=== PATIENT | male | born 1945 | race Caucasian/White ===

== ENCOUNTER → 2019-01-02 14:53 | Outpatient (CLI) | payer MEDICARE, SELFPAY ==
[2019-01-02 15:23] LABS: Microscopic, Urine URINE MICROSCOPIC (MICROSCOPIC)
[2019-01-02 16:12] LABS: Basophils # 0.1 K/mm3 (0-0.2); Basophils % 0.8 % (0.1-2.0); Eosinophils # 0.3 K/mm3 (0.0-0.4); Eosinophils % 3.4 % (0.1-12.0); Hemoglobin 16.9 g/dL (14.1-18.0); Lymphocytes # 2.1 K/mm3 (0.7-4.5); Lymphocytes % 22.2 % (10-50); Mean Corpuscular HGB Conc 33.1 g/dL (31.8-35.4); Mean Corpuscular Hemoglobin 32.6 pg (27.0-31.2); Mean Corpuscular Volume 98.6 fl (80-94); Mean Platelet Volume 8.1 fl (7.4-10.4); Monocytes # 0.8 K/mm3 (0.1-1.0); Neutrophils # 6.2 K/mm3 (1.8-7.8); Neutrophils % 65.5 % (37.0-80.0); Platelet Count 170 K/mm3 (142-424); Red Blood Count 5.18 M/mm3 (4.60-6.20); Red Cell Distribution Width 13.5 % (11.5-17.5); White Blood Count 9.5 K/mm3 (4.8-10.8)
[2019-01-02 17:24] LABS: Alanine Aminotransferase 24 U/L (12-78); Albumin/Globulin Ratio 1.2 (1.1-1.8); Alkaline Phosphatase 105 U/L (46-116); Anion Gap 14.4 mEq/L (5-15); Aspartate Amino Transferase 19 U/L (15-37); Bilirubin,Total 0.8 mg/dL (0.2-1.0); Blood Urea Nitrogen 13 mg/dL (7-18); C-Reactive Protein 5.6 mg/dL (0.0-0.9); Calcium 9.4 mg/dL (8.5-10.1); Carbon Dioxide 29 mmol/L (21.0-32.0); Chloride 102 mmol/L (98-107); Creatinine,Serum 0.98 mg/dL (0.70-1.30); Estimated Glomerular Filt Rate 75 ml/min (>60); GFR (African American) 91 ML/MIN (>60); Globulin 3.4 gm/dl (1.3-3.2); Glucose 120 mg/dL (74-106); Potassium 4.4 mmoL/L (3.5-5.1); Sodium 141 mmol/L (136-145); Total Protein,Serum 7.4 gm/dL (6.4-8.2)
[2019-01-02 17:27] LABS: Erythrocyte Sedimentation Rate 95 mm/hr (0-20)
[2019-01-02 17:53] LABS: Appearance,Urine CLEAR (Clear); Bilirubin,Urine Negative (Negative); Blood, Urine TRACE-L (Negative); Color,Urine YELLOW (Yellow); Glucose,Urine (UA) TRACE (Negative); Ketones,Urine Negative (Negative); Leukocyte Esterase,Urine Negative (Negative); Nitrate,Urine Negative (Negative); Protein,Urine Negative (Negative)
[2019-01-02 18:09] LABS: Bacteria,Urine Trace /lpf; RBC,Urine Occasional #/hpf (0-3)
== END ==
PROVIDERS: Visit Provider Emergency Medicine
DX: K52.9 Noninfective gastroenteritis and colitis, unspecified (principal)
CPT/HCPCS: 36415; 80053; 81001; 85025; 85651; 86140

== ENCOUNTER → 2019-01-03 08:52 | Outpatient (CLI) | payer MEDICARE, SELFPAY ==
[2019-01-03 09:07] LABS: Adenovirus F 40/41, stool Not Detected (NotDetected); Astrovirus Not Detected (NotDetected); Campylobacter Not Detected (NotDetected); Clostridium Difficile A/B, PCR Not Detected (NotDetected); Cryptosporidium Not Detected (NotDetected); Cyclospora Cayetanesis Not Detected (NotDetected); Entamoeba histolytica Not Detected (NotDetected); Enteroaggregative E coli Not Detected (NotDetected); Enteropathogenic E coli Not Detected (NotDetected); Enterotoxigenic E coli Not Detected (NotDetected); Giardia lamblia Not Detected (NotDetected); Norovirus Not Detected (NotDetected); Plesimonas Shigalloides, PCR Not Detected (NotDetected); Rotavirus A Not Detected (NotDetected); Salmonella, PCR Not Detected (NotDetected); Sapovirus Not Detected (NotDetected); Shiga-like toxin E coli Not Detected (NotDetected); Shigella Enterovasive E coli Not Detected (NotDetected); Vibrio Cholerae Not Detected (NotDetected); Vibrio, PCR Not Detected (NotDetected); Yersinia Entercolitica, PCR Not Detected (NotDetected)
== END ==
PROVIDERS: Emergency Medicine; Visit Provider Family Medicine
DX: K52.9 Noninfective gastroenteritis and colitis, unspecified (principal)
CPT/HCPCS: 87506

== ENCOUNTER 2021-01-30 13:48 | Emergency (ER) | payer MEDICARE, SELFPAY ==
[2021-01-30 15:38] VITALS: BP 127/87; PULSE 89; RESP 16; TEMP 38.1; O2SAT 96; BMI 27.8
--- NOTE | 2021-01-30 15:46 | HMH.EDUTC ---
[facility] [place] Clinical Impression: Sinusitis Qualifiers: Sinusitis location: unspecified location Chronicity: unspecified Qualified Code(s): J32.9 - Chronic sinusitis, unspecified Disposition: Home, Self-Care Condition on Discharge: Good Instructions: Sinusitis, DI for Sinusitis, DI for Fever (Symptom) -- Adult Additional Instructions: *Monitor Temp, Over the counter Motrin or Tylenol as directed/as needed Tylenol every 4 hours and Motrin every 6 hours (as long as your family doctor has told you that you can take it) for fever or pain. and straight to ER if unable to lower temp less than 101.0 after medication given *Warm salt water gargles may help to soothe the throat *Throat Lozenges *Warm fluids like tea with honey may help to soothe the throat *Sleep elevated *Humidifier/Vaporizer *Flonase 2 sprays in each nostril daily but be aware that it may take 2-3 days before you notice improvement Follow up IMMEDIATELY for new or worsening symptoms or no Noticeable improvement over the next 48-72 hours. 911 for difficulty breathing or swallowing You were tested for today for COVID19 your test result should be back in the next 24-48 hours you may check your results on the [facility] my health portal if you have trouble logging on or getting your results you may call You was given a handout with instructions for Self Quarantine and Self isolation for while you wait on test results and what to do if they are positive If you are positive the Health Dept will be contacting you also Make sure to take your Vitamins Vit. C Vit D and Zinc if you can take them Prescriptions: Benzonatate [Benzonatate 100mg cap] 100 mg PO Q8HP PRN #15 cap PRN Reason: Cough Transmission Status: Pending to [facility] Amoxicillin/Potassium Clav [Augmentin 875-125 Tablet] 1 tab PO Q12H 7 Days #14 tab Transmission Status: Pending to [facility] Fluticasone Propionate [Flonase 50mcg nasal spray 16gm] 1 spr NS DAILY #1 each Transmission Status: Pending to [facility] Referrals: Provider,Referral, MD [Primary Care Provider] - As needed Time of Disposition: 16:13 Medical Decision Making - Sukhi Inquiry Pt receiving controlled substance: No Sukhi was queried for this patient: No Vital Signs: 01/30/21 15:38 Temperature 100.6 F H Temperature Source Oral Pulse Rate [Right Radial] 89 Respiratory Rate 16 Blood Pressure [Right Arm] 127/87 Blood Pressure Mean [Right Arm] 100 Blood Pressure Source [Right Arm] Automatic Cuff Blood Pressure Position [Right Arm] Sitting 02 Sat by Pulse Oximetry 96 Oxygen Delivery Method Room Air - Lab Data Lab results reviewed: Yes: I reviewed the patient's lab results. Lab Results 01/30/21 15:44: Influenza Type A Ag Negative, Influenza Type B Ag Negative Orders (Tests/Meds): ORDERS Category Date Time Status Covid-19 Nasal PCR ([facility]) Routine Lab 01/30/21 15:48 [place] [facility] [place] - General Stated complaint: cough, congestion, drainage Time Seen by Provider: 01/30/21 15:46 Mode of Arrival: Ambulatory Source of Information: Patient Limitations: No Limitations Description of Symptoms (Recalled from Triage Doc. by RN): Pt stated sinus pressure, runny nose, cough for 3 wks HEENT Symptoms (Recalled from RN notes): Yes Resp Symptoms (Recalled from RN notes): No Skin Symptoms (Recalled from RN notes): No MS Symptoms (Recalled from RN notes): No Functional Status (Recalled from RN notes): n/a - History of Present Illness Provider Complaint: Patient states that he has been having sinus congestion and pressure for about 3 weeks that has continued to get worse with drainage in the back of his throat State that today he was feeling chilled and having bodyaches State that he thinks he has a sinus infection but worried about flu and COVID and wanted to get checked - Related Data Home Medications Medication Instructions Recorded Confirmed Aspirin [Aspir 81] 81 mg PO DA
[2021-01-30 16:02] LABS: UTC Influenza A Antigen Negative (Negative)
[2021-01-30 16:03] LABS: UTC Influenza B Antigen Negative (Negative)
[2021-01-30 16:17] VITALS: BP 127/87; PULSE 89; RESP 49; TEMP 38.1; O2SAT 96
== END 2021-01-30 16:17 | disposition home or self-care (01) ==
PROVIDERS: Emergency Provider Nurse Practitioner
DX: U07.1 COVID-19 (principal); J32.9 Chronic sinusitis, unspecified; E11.9 Type 2 diabetes mellitus without complications; E78.5 Hyperlipidemia, unspecified; I10 Essential (primary) hypertension; I25.10 Atherosclerotic heart disease of native coronary artery without angina pectoris
CPT/HCPCS: G0463; 87804; 99202; C9803; U0003; U0005

== ENCOUNTER 2021-02-28 10:51 | Observation (INO) | payer MEDICARE, SELFPAY ==
[2021-02-28] VITALS (13 sets, daily range): BP systolic 116–155; BP diastolic 74–92; PULSE 72–95; RESP 15–26; TEMP 36.7–37.3; O2SAT 85–97; BMI 25.1; BMI 24.8
--- NOTE | 2021-02-28 11:01 | XR_ITS ---
FINAL REPORT CLINICAL HISTORY: sob Post covid breathing difficulties, tested positive early January FINDINGS: Two views of the chest were obtained. The heart size and pulmonary vascularity are within normal limits. The mediastinum is normal. No acute pulmonary abnormality is identified. There is no pneumothorax. The bony thorax is intact. IMPRESSION: No active cardiopulmonary disease. Reviewed, Interpreted and Dictated by Landen Olmstead III, MD Transcribed by Marilee Quintana Authenticated by Landen Olmstead III, MD on 02/28/2021 12:41:24 PM [facility]
--- NOTE | 2021-02-28 12:17 | HMH.EDUTC ---
[facility] [place] Disposition Clinical Impression: COVID-19 Pneumonia Qualifiers: Pneumonia type: due to unspecified organism Laterality: bilateral Lung location: unspecified part of lung Qualified Code(s): J18.9 - Pneumonia, unspecified organism CAD (coronary artery disease) Qualifiers: Coronary Disease-Associated Artery/Lesion type: [place] artery [place] vs. transplanted heart: [place] heart Associated angina: without angina Qualified Code(s): I25.10 - Atherosclerotic heart disease of [place] coronary artery without angina pectoris Disposition: Still a Patient Condition on Discharge: Fair Instructions: Pneumonia-Adult Referrals: Provider,Referral, [Primary Care Provider] - Time of Disposition: 12:29 Medical Decision Making - Medical Records Medical records reviewed: No: I reviewed the patient's medical records. - Sukhi Inquiry Pt receiving controlled substance: No Vital Signs: 02/28/21 12:11 Temperature 98.5 F Temperature Source Oral Pulse Rate [Left] 95 H Respiratory Rate 26 H Blood Pressure [Right Arm] 155/89 H Blood Pressure Mean [Right Arm] 111 02 Sat by Pulse Oximetry 89 L Oxygen Delivery Method Room Air Orders (Tests/Meds): ORDERS Category Date Time Status Chest XR 2 view (NOT portable) [XR chest 2V] Stat Exams 02/28/21 11:01 Taken - Radiology Data #1 Image(s): Chest Image Reviewed: Yes I reviewed the patient's radiology image, Yes I have reviewed radiologist's interpretation Preliminary Findings: Abnormal Medical Decision Narrative: He was transferred to the er due to his shortness of breath, low 02 sats, history of covid-19, and history of CAD. [facility] [place] HPI - General Stated complaint: soa Time Seen by Provider: 02/28/21 12:18 - History of Present Illness Provider Complaint: He states that he was diagnosed with covid-19 on 01/30. Since then he has never really got better. He has became progressively more short of breath. His symptoms have worsened over the past 2 days. If he walks or does any activity he has shortness of breath. He denies any chest pain. He has a history of CAD. He had CABG surgery in 2006. - Related Data Home Medications Medication Instructions Recorded Confirmed Aspirin [Aspir 81] 81 mg PO DAILY 02/16/19 02/16/19 Metformin HCl [Metformin 1000mg 1,000 mg PO DAILY 02/16/19 02/16/19 Tablets] Metoprolol Tartrate [Lopressor 25 mg PO DAILY 02/16/19 02/16/19 25mg tablet] Niacin [Niacin ER] 1,000 mg PO DAILY 02/16/19 02/16/19 Simvastatin 20 mg PO DAILY 02/16/19 02/16/19 Terazosin HCl [Hytrin 5mg Capsule] 5 mg PO DAILY 02/16/19 02/16/19 Previous Rx's Medication Instructions Recorded Amoxicillin/Potassium Clav 1 tab PO Q12H 7 Days #14 tab 01/30/21 [Augmentin 875-125 Tablet] Benzonatate [Benzonatate 100mg 100 mg PO Q8HP PRN #15 cap 01/30/21 cap] Fluticasone Propionate [Flonase 1 spr NS DAILY #1 each 01/30/21 50mcg nasal spray 16gm] Allergies Allergy/AdvReac Type Severity Reaction Status Date / Time No Known Allergies Allergy Verified 01/30/21 15:44 [facility] History - Hepatitis A Screen Attestation statement:: This patient has been screened for Hepatitis A risk factors. I have reviewed the patient's past medical history: Yes Medical History: Reports:: Coronary Artery Disease, Diabetes Mellitus Type 2, Hyperlipidemia, Hypertension Denies:: Cancer, Diabetes Mellitus Type 1, Internal Pacemaker, MRSA, Seizures Other Surgeries: Yes: CABG, Cholecystectomy, Other. No: Pacemaker Amputation: No Fractures: No - Social History Smoking Status: Never smoker Alcohol Intake: never Substance Use Type: denies use Occupational Status: retired Housing: house Household Members: none Family Hx:: Unable to obtain ROS Obtained: Yes All systems reviewed & no additional complaints - Constitutional Constitutional: Reports as per HPI - Eyes Eyes: Denies eye discharge - ENT Ears, Nose, Mouth, and Throat: Reports as per HPI - Cardi
--- NOTE | 2021-02-28 12:40 | HMH.EDGENADL ---
ED Disposition Clinical Impression: COVID-19 Pneumonia Qualifiers: Pneumonia type: due to unspecified organism Laterality: bilateral Lung location: unspecified part of lung Qualified Code(s): J18.9 - Pneumonia, unspecified organism CAD (coronary artery disease) Qualifiers: Coronary Disease-Associated Artery/Lesion type: [place] artery [place] vs. transplanted heart: [place] heart Associated angina: without angina Qualified Code(s): I25.10 - Atherosclerotic heart disease of [place] coronary artery without angina pectoris Respiratory failure with hypoxia Qualifiers: Chronicity: acute Qualified Code(s): J96.01 - Acute respiratory failure with hypoxia Disposition: Admitted As Inpatient Condition on Discharge: Serious - Critical Care Critical Care Time: Yes Attestation: On 02/28/21, the high probability of a clinically significant, sudden or life threatening deterioration of the following system(s) required my full and direct attention, intervention and personal management. The time I documented below is in addition to time spent performing reported procedures but includes the following listed in this critical care notation. Total Critical Care Time: 30 Vital system(s) involved:: Respiratory Failure My critical care processes included: Assessment & monitoring of V/S, Initial and Re-exams, Data Review/Interpretation, Coordinating Care, Medication Orders and management, Documentation Medical Decision Making - Medical Records Medical records reviewed: Yes: I reviewed the patient's medical records. MR Comment: Reviewed [facility] note from 01/30/2021. Diagnosed with sinusitis and started on Flonase, Augmentin, Tessalon. COVID test positive. - Sukhi Inquiry Pt receiving controlled substance: No Vital Signs: 02/28/21 12:11 02/28/21 12:40 02/28/21 13:00 Temperature 98.5 F 98.2 F Temperature Source Oral Oral Pulse Rate 92 H Pulse Rate [Left] 95 H 93 H Respiratory Rate 26 H 18 16 Blood Pressure 130/83 Blood Pressure [Right Arm] 155/89 H 133/83 Blood Pressure Mean 92 Blood Pressure Mean [Right Arm] 111 99 Blood Pressure Source [Right Arm] Automatic Cuff Blood Pressure Position [Right Arm] Sitting 02 Sat by Pulse Oximetry 89 L 93 L 94 L Oxygen Delivery Method Room Air Nasal Cannula Nasal Cannula Oxygen Flow Rate (LPM) 2 2 02/28/21 13:30 02/28/21 14:51 02/28/21 15:00 Temperature Temperature Source Pulse Rate 84 76 80 Pulse Rate [Left] Respiratory Rate 16 Blood Pressure 130/85 150/92 H 140/78 Blood Pressure [Right Arm] Blood Pressure Mean 102 Blood Pressure Mean [Right Arm] Blood Pressure Source [Right Arm] Blood Pressure Position [Right Arm] 02 Sat by Pulse Oximetry 94 L 95 95 Oxygen Delivery Method Nasal Cannula Oxygen Flow Rate (LPM) 2 - Lab Data Lab Results 02/28/21 12:50: WBC 10.9 H, RBC 5.12, Hgb 16.4, Hct 49.4, MCV 96.6 H, MCH 32.0 H, MCHC 33.1, RDW 14.6, Plt Count 251, MPV 8.2, Neut % (Auto) 83.3 H, Lymph % (Auto) 10.2, [place] % (Auto) 4.8, Eos % (Auto) 0.8, Baso % (Auto) 0.8, Neut # (Auto) 9.1 H, Lymph # (Auto) 1.1, [place] # (Auto) 0.5, Eos # (Auto) 0.1, Baso # (Auto) 0.1 02/28/21 12:50: Sodium 136, Potassium 4.0, Chloride 97 L, Carbon Dioxide 31 H, Anion Gap 12.0, BUN 11, Creatinine 1.00, Estimated Creat Clear 75, Estimated GFR 73, Est GFR ( Amer) 89, Glucose 167 H, Calcium 9.9, Total Bilirubin 0.8, AST 27, ALT 23, Alkaline Phosphatase 117, C-Reactive Protein 44.2 H, Total Protein 8.1, Albumin 4.2, Globulin 3.9 H, Albumin/Globulin Ratio 1.1 02/28/21 12:50: Lactate 1.4 02/28/21 12:50: ESR 19 02/28/21 12:50: D-Dimer 1.71 H 02/28/21 12:50: Ferritin 414, Lactate Dehydrogenase 221 L, Troponin I 0.02, Procalcitonin 0.160 02/28/21 13:32: SARS-CoV-2 (PCR) Not detected, Influenza A Untype (PCR) Not detected, Influenza Type B (PCR) Not detected Result diagrams: 02/28/21 12:50 02/28/21 12:50 Orders (Tests/Meds): ED MEDICATIONS Generic Name Dose Route Start Last Adm
--- NOTE | 2021-02-28 12:51 | PC.NURSE ---
Dr Gonsalez had me call francesca alan MD believes there is more to the reading that reported out. Spoke with Rustam, will be following up.
--- NOTE | 2021-02-28 13:02 | CT_ITS ---
FINAL REPORT CLINICAL HISTORY: . COMPARISON: 01/31/2021 FINDINGS: Thin section axial CT images of the chest were obtained with contrast. 3D reformatted images were also obtained. This study was performed with techniques to keep radiation doses as low as reasonably achievable (ALARA). Individualized dose reduction techniques using automated exposure control or adjustment of mA and/or kV according to the patient''s size were employed. There is no evidence of pulmonary embolism. There is no evidence of thoracic aortic aneurysm or dissection. Mild mediastinal and right hilar adenopathy has increased. There is no evidence of pulmonary mass or nodule. There are bilateral pulmonary opacities, right greater than left consistent with bilateral pneumonia, worse from prior exam. Limited images of the upper abdomen demonstrate postoperative changes of cholecystectomy. IMPRESSION: No evidence of pulmonary embolism. Worsening bilateral pneumonia which may represent viral pneumonia. Reviewed, Interpreted and Dictated by Landen Olmstead III, MD Transcribed by Mallorie Lorenzo Authenticated by Landen Olmstead III, MD on 02/28/2021 02:35:36 PM [facility]
[2021-02-28 13:31] LABS: Basophils # 0.1 K/mm3 (0-0.2); Basophils % 0.8 % (0.1-2.0); Eosinophils # 0.1 K/mm3 (0.0-0.4); Eosinophils % 0.8 % (0.1-12.0); Hematocrit 49.4 % (42.0-52.0); Hemoglobin 16.4 g/dL (14.1-18.0); Lymphocytes # 1.1 K/mm3 (0.7-4.5); Lymphocytes % 10.2 % (10-50); Mean Corpuscular HGB Conc 33.1 g/dL (31.8-35.4); Mean Corpuscular Volume 96.6 fl (80-94); Mean Platelet Volume 8.2 fl (7.4-10.4); Monocytes # 0.5 K/mm3 (0.1-1.0); Monocytes % 4.8 % (1.7-9.3); Neutrophils # 9.1 K/mm3 (1.8-7.8); Neutrophils % 83.3 % (37.0-80.0); Platelet Count 251 K/mm3 (142-424); Red Blood Count 5.12 M/mm3 (4.60-6.20); Red Cell Distribution Width 14.6 % (11.5-17.5); White Blood Count 10.9 K/mm3 (4.8-10.8)
[2021-02-28 13:33] LABS: Lactic Acid 1.4 mmol/L (0.7-2.1)
[2021-02-28 13:34] LABS: Alanine Aminotransferase 23 U/L (12-78); Albumin Level 4.2 g/dl (3.5-5.0); Albumin/Globulin Ratio 1.1 (1.1-1.8); Alkaline Phosphatase 117 U/L (38-126); Aspartate Amino Transferase 27 U/L (17-59); Bilirubin,Total 0.8 mg/dl (0.2-1.3); Blood Urea Nitrogen 11 mg/dl (9-20); Calcium 9.9 mg/dl (8.4-10.2); Carbon Dioxide 31 mmol/L (22.0-30.0); Chloride 97 mmol/L (98-107); Creatinine Clearance Estimated 75 mL/min (50-200); Estimated Glomerular Filt Rate 73 ml/min (>60); GFR (African American) 89 ML/MIN (>60); Globulin 3.9 g/dL (1.3-3.2); Glucose 167 mg/dl (74-100); Lactate Dehydrogenase 221 U/L (313-618); Sodium 136 mmol/L (136-145); Total Protein,Serum 8.1 g/dl (6.3-8.2)
[2021-02-28 13:40] LABS: C-Reactive Protein 44.2 mg/L (0-4); D-Dimer 1.71 ug/mL (0.0-0.5)
[2021-02-28 13:49] LABS: Coronavirus 19, PCR Not Detected (NotDetected); Influenza A, PCR Not Detected (NotDetected); Influenza B, PCR Not Detected (NotDetected)
[2021-02-28 13:49] LABS: Troponin I 0.02 ng/ml (0.00-0.034)
--- NOTE | 2021-02-28 14:12 | ECG_ITS ---
APPROVED REPORT Exam: Resting ECG HR:81 bpm ECG Measurements Heart Rate 81 AXES AL 136 P 61 QRSd 84 QRS 77 QT 352 T 25 QTc 408 Conclusion Normal sinus rhythm T wave abnormality, consider inferior ischemia Abnormal ECG Electronically signed by : Milan Perez MD 02/28/2021 17:30:02
[2021-02-28 14:28] LABS: Erythrocyte Sedimentation Rate 19 mm/hr (0-20)
--- NOTE | 2021-02-28 14:33 | PC.NURSE ---
Pt returned from CT
--- NOTE | 2021-02-28 14:52 | PC.NURSE ---
calling service at this time
--- NOTE | 2021-02-28 14:54 | PC.NURSE ---
Dr Gonsalez speaking with Dr Romeo
[2021-02-28 14:56] LABS: Ferritin 414 ng/ml (17.9-464)
--- NOTE | 2021-02-28 15:02 | CA_ITS ---
FINAL REPORT CLINICAL HISTORY: COVID pneumonia, SOA, HTN, HLD, CAD, worsening SOB since COVID diagnosis mid January. CTA chest was negative for PE today. FINDINGS: Color Doppler, duplex Doppler and compression sonography of the bilateral lower extremities was performed. There is no evidence of deep venous thrombosis from the level of the groin to the calf. The deep veins are patent and compressible. IMPRESSION: No evidence of deep venous thrombosis bilateral lower extremities. Reviewed, Interpreted and Dictated by Landen Olmstead III, MD Transcribed by Mallorie Lorenzo Authenticated by Landen Olmstead III, MD on 02/28/2021 04:53:[address] [facility]
--- NOTE | 2021-02-28 15:35 | PC.NURSE ---
[id number] bed assignment requested, room 205 all staff notified
[2021-02-28 15:56] LABS: Adenovirus,PCR Not Detected (NotDetected); Bordetella Pertussis Not Detected (NotDetected); Chlamydophila Pneumoniae, PCR Not Detected (NotDetected); Coronavirus 19, PCR Not Detected (NotDetected); Coronavirus 229E Not Detected (NotDetected); Coronavirus NL63 Not Detected (NotDetected); Coronavirus OC43 Not Detected (NotDetected); Coronovirus HKU1,PCR Not Detected (NotDetected); Human Metapneumovirus Not Detected (NotDetected); Influenza A, PCR Not Detected (NotDetected); Influenza AH1, 2009 Not Detected (NotDetected); Influenza AH1, PCR Not Detected (NotDetected); Influenza AH3,PCR Not Detected (NotDetected); Influenza B, PCR Not Detected (NotDetected); Mycoplasma Pneumoniae, PCR Not Detected (NotDetected); Parainfluenza 1, PCR Not Detected (NotDetected); Parainfluenza 2, PCR Not Detected (NotDetected); Parainfluenza 3, PCR Not Detected (NotDetected); Parainfluenza 4, PCR Not Detected (NotDetected); Respiratory Syncytial Virus Not Detected (NotDetected); Rhinovirus/Enterovirus Not Detected (NotDetected)
--- NOTE | 2021-02-28 16:07 | PC.NURSE ---
pt was c/o burning of RUE in area of IV site, pt has azithromycin infusing in IV. IV infusion stopped, notified ER MD who states to call pharmacy. Spoke with Tom in pharmacy, states to slow down IV infusion of azithromycin and to continue to monitor.
--- NOTE | 2021-02-28 16:16 | PC.NURSE ---
report called to yuri tripp on second floor at this time, states he will send staff down to transport pt.
--- NOTE | 2021-02-28 17:32 | HMH.HP ---
*Admission Date: 02/28/21 *Chief complaint: Shortness of breath *History of present illness: 75-year-old male presented to the hospital with 2 to 3 days of exertional dyspnea and hypoxia at home. Patient was diagnosed with COVID-19 infection in mid January. Symptoms started on January 28 with positive testing on January 30. Patient was able to remain out of the hospital and during that time monitoring himself at home. He reports oxygen sats as low as 88% during his time of COVID. By Jamari clay patient reports he had improved although since that time he has not returned to baseline. Approximately 3 days prior to admission patient felt like his symptoms were returning and he was declining with increased chest congestion, cough with scant sputum production that was yellow, and severe dyspnea on exertion. Patient presented to the ER. Patient was found to be hypoxic with chest x-ray and CT scan confirming the presence of bilateral infiltrates. Hypoxia was corrected with supplemental oxygen. Patient has been admitted with diagnosis of pneumonia and respiratory failure. Patient denies recent fever or chills. He does admit URI symptoms of rhinorrhea. [facility] History I have reviewed the patient's past medical history: Yes Medical History: Reports:: Coronary Artery Disease, Diabetes Mellitus Type 2, Hyperlipidemia, Hypertension Denies:: Cancer, Diabetes Mellitus Type 1, Internal Pacemaker, MRSA, Seizures *Have you ever received a pneumonia vaccine?: No *Have you received a flu vaccine this season?: No Other Surgeries: Yes: CABG, Cholecystectomy, Other. No: Pacemaker Amputation: No Fractures: No - *Social History Smoking Status: Never smoker Alcohol Intake: never Substance Use Type: denies use *Occupational Status:: retired Housing: house Household Members: none *Travel in the last 8 weeks: None Family Hx:: Unable to obtain Review of Systems - Review of Systems Review of systems:: pertinent systems reviewed and negative unless documented below - *Neurologic Reports weakness Meds Home Medications Medication Instructions Recorded Confirmed Type Aspirin [Aspir 81] 162 mg PO DAILY 02/16/19 02/28/21 History Metoprolol Tartrate [Lopressor 25 mg PO DAILY 02/16/19 02/28/21 History 25mg tablet] Niacin [Niacin ER] 1,000 mg PO DAILY 02/16/19 02/28/21 History Simvastatin 20 mg PO DAILY 02/16/19 02/28/21 History Terazosin HCl [Hytrin 5mg Capsule] 5 mg PO DAILY 02/16/19 02/28/21 History Benzonatate [Benzonatate 100mg 100 mg PO Q8HP PRN #15 cap 01/30/21 Rx cap] Fluticasone Propionate [Flonase 1 spr NS DAILY #1 each 01/30/21 Rx 50mcg nasal spray 16gm] Amoxicillin/Potassium Clav 1 tab PO Q12H 02/28/21 02/28/21 History [Augmentin 875-125 Tablet] Allergies Allergy/AdvReac Type Severity Reaction Status Date / Time No Known Allergies Allergy Verified 01/30/21 15:44 Exam Vital signs and Labs for Last 24 Hours: Temp Pulse Resp BP Pulse Ox 98.2 F 78 16 116/74 95 02/28/21 17:23 02/28/21 17:23 02/28/21 17:23 02/28/21 17:23 02/28/21 17:00 Laboratory Results - last 24 hr 02/28/21 12:50: WBC 10.9 H, RBC 5.12, Hgb 16.4, Hct 49.4, MCV 96.6 H, MCH 32.0 H, MCHC 33.1, RDW 14.6, Plt Count 251, MPV 8.2, Neut % (Auto) 83.3 H, Lymph % (Auto) 10.2, [place] % (Auto) 4.8, Eos % (Auto) 0.8, Baso % (Auto) 0.8, Neut # (Auto) 9.1 H, Lymph # (Auto) 1.1, [place] # (Auto) 0.5, Eos # (Auto) 0.1, Baso # (Auto) 0.1 02/28/21 12:50: Sodium 136, Potassium 4.0, Chloride 97 L, Carbon Dioxide 31 H, Anion Gap 12.0, BUN 11, Creatinine 1.00, Estimated Creat Clear 75, Estimated GFR 73, Est GFR ( Amer) 89, Glucose 167 H, Calcium 9.9, Total Bilirubin 0.8, AST 27, ALT 23, Alkaline Phosphatase 117, C-Reactive Protein 44.2 H, Total Protein 8.1, Albumin 4.2, Globulin 3.9 H, Albumin/Globulin Ratio 1.1 01/14/22 12:50: Lactate 1.4 01/14/22 12:50: ESR 19 02/28/21 12:50: D-Dimer 1.71 H 02/28/21 12:50: Ferritin 414, Lactate Dehydrogenase
--- NOTE | 2021-02-28 18:37 | PC.NURSE ---
AOX4 SINCE ARRIVING TO FLOOR. TOLERATING RA WITH NO C/O SOA NOTED. TOLERATED DIET WELL.
[2021-02-28 20:07] LABS: POC Glucose,Bedside 127 (70-110)
[2021-02-28 20:53] LABS: POC Glucose,Bedside 216 (70-110)
[2021-03-01] VITALS: BP 116/73; PULSE 65; RESP 18; TEMP 36.9; O2SAT 96
[2021-03-01 04:00] VITALS: BP 117/72; PULSE 66; RESP 18; TEMP 36.4; O2SAT 95
[2021-03-01 06:00] VITALS: BMI 23.8
[2021-03-01 06:15] LABS: POC Glucose,Bedside 137 (70-110)
[2021-03-01 06:45] LABS: Basophils # 0.1 K/mm3 (0-0.2); Basophils % 0.8 % (0.1-2.0); Eosinophils # 0.1 K/mm3 (0.0-0.4); Eosinophils % 1.3 % (0.1-12.0); Hematocrit 45.4 % (42.0-52.0); Hemoglobin 14.8 g/dL (14.1-18.0); Lymphocytes # 1.4 K/mm3 (0.7-4.5); Lymphocytes % 15.4 % (10-50); Mean Corpuscular HGB Conc 32.6 g/dL (31.8-35.4); Mean Corpuscular Hemoglobin 31.9 pg (27.0-31.2); Mean Corpuscular Volume 97.9 fl (80-94); Mean Platelet Volume 8.5 fl (7.4-10.4); Monocytes # 0.5 K/mm3 (0.1-1.0); Monocytes % 5.1 % (1.7-9.3); Neutrophils % 77.3 % (37.0-80.0); Platelet Count 258 K/mm3 (142-424); Red Blood Count 4.64 M/mm3 (4.60-6.20); Red Cell Distribution Width 14.7 % (11.5-17.5)
--- NOTE | 2021-03-01 07:02 | HMH.ACPN2 ---
Internal Medicine - PN: Subj *Date: 03/01/21 *Time: 07:02 Interval history: No acute events overnight. Patient reports improvement in dyspnea on exertion. Exam Vital signs and Labs for Last 24 Hours: Temp Pulse Resp BP Pulse Ox 97.5 F L 66 18 117/72 95 03/01/21 04:00 03/01/21 04:00 03/01/21 04:00 03/01/21 04:00 03/01/21 04:00 Laboratory Results - last 24 hr 02/28/21 12:50: WBC 10.9 H, RBC 5.12, Hgb 16.4, Hct 49.4, MCV 96.6 H, MCH 32.0 H, MCHC 33.1, RDW 14.6, Plt Count 251, MPV 8.2, Neut % (Auto) 83.3 H, Lymph % (Auto) 10.2, [place] % (Auto) 4.8, Eos % (Auto) 0.8, Baso % (Auto) 0.8, Neut # (Auto) 9.1 H, Lymph # (Auto) 1.1, [place] # (Auto) 0.5, Eos # (Auto) 0.1, Baso # (Auto) 0.1 02/28/21 12:50: Sodium 136, Potassium 4.0, Chloride 97 L, Carbon Dioxide 31 H, Anion Gap 12.0, BUN 11, Creatinine 1.00, Estimated Creat Clear 75, Estimated GFR 73, Est GFR ( Amer) 89, Glucose 167 H, Calcium 9.9, Total Bilirubin 0.8, AST 27, ALT 23, Alkaline Phosphatase 117, C-Reactive Protein 44.2 H, Total Protein 8.1, Albumin 4.2, Globulin 3.9 H, Albumin/Globulin Ratio 1.1 02/28/21 12:50: Lactate 1.4 02/28/21 12:50: ESR 19 02/28/21 12:50: D-Dimer 1.71 H 02/28/21 12:50: Ferritin 414, Lactate Dehydrogenase 221 L, Troponin I 0.02, Procalcitonin 0.160 02/28/21 13:32: SARS-CoV-2 (PCR) Not detected, Influenza A Untype (PCR) Not detected, Influenza Type B (PCR) Not detected 02/28/21 15:03: Chlamy pneumoniae PCR Not detected, Adenovirus (PCR) Not detected, B. pertussis DNA (PCR) Not detected, Coronavirus OC43 (PCR) Not detected, Coronavirus HKU1 (PCR) Not detected, Coronavirus 229E (PCR) Not detected, SARS-CoV-2 (PCR) Not detected, Coronavirus NL63 (PCR) Not detected, Human Metapneumovir PCR Not detected, Influenza A (H1) PCR Not detected, Influ A (H1N1/09) PCR Not detected, Influenza A (H3) PCR Not detected, Influenza Type A (PCR) Not detected, Influenza Type B (PCR) Not detected, M. pneumoniae (PCR) Not detected, Parainfluenza 1 (PCR) Not detected, Parainfluenza 2 (PCR) Not detected, Parainfluenza 3 (PCR) Not detected, Parainfluenza 4 (PCR) Not detected, RSV (PCR) Not detected, Entero/Rhino (PCR) Not detected 02/28/21 18:05: POC Glucose 127 H 02/28/21 20:27: POC Glucose 216 H 03/01/21 06:07: POC Glucose 137 H 03/01/21 06:23: WBC 9.0, RBC 4.64, Hgb 14.8, Hct 45.4, MCV 97.9 H, MCH 31.9 H, MCHC 32.6, RDW 14.7, Plt Count 258, MPV 8.5, Neut % (Auto) 77.3, Lymph % (Auto) 15.4, [place] % (Auto) 5.1, Eos % (Auto) 1.3, Baso % (Auto) 0.8, Neut # (Auto) 7.0, Lymph # (Auto) 1.4, [place] # (Auto) 0.5, Eos # (Auto) 0.1, Baso # (Auto) 0.1 I & O for Last 24 hours: Intake & Output 02/26/21 02/27/21 02/28/21 03/01/21 11:59 11:59 11:59 11:59 Intake Total 480 / 480 Balance 480 / 480 Weight 170 lb Narrative: He is in no distress. Lungs have mild coarseness in the right base but overall improved compared to yesterday. Heart has a regular rate and rhythm. Assessment and Plan (1) Pneumonia Status: Acute Qualifiers: Pneumonia type: due to unspecified organism Laterality: bilateral Lung location: unspecified part of lung Qualified Code(s): J18.9 - Pneumonia, unspecified organism Category: Medical Code(s): J18.9 - Pneumonia, unspecified organism (2) CAD (coronary artery disease) Status: Acute Qualifiers: Coronary Disease-Associated Artery/Lesion type: [place] artery [place] vs. transplanted heart: [place] heart Associated angina: without angina Qualified Code(s): I25.10 - Atherosclerotic heart disease of [place] coronary artery without angina pectoris Category: Medical Code(s): I25.10 - Atherosclerotic heart disease of [place] coronary artery without angina pectoris (3) Respiratory failure with hypoxia Status: Acute Qualifiers: Chronicity: acute Qualified Code(s): J96.01 - Acute respiratory failure with hypoxia Category: Medical Code(s): J96.91 - Respiratory failure, unspecified with hypoxia - Assessment a
[2021-03-01 07:40] LABS: Anion Gap 11.4 mEq/L (5-15); Blood Urea Nitrogen 11 mg/dl (9-20); Calcium 9.5 mg/dl (8.4-10.2); Carbon Dioxide 30 mmol/L (22.0-30.0); Chloride 99 mmol/L (98-107); Creatinine Clearance Estimated 72 mL/min (50-200); Estimated Glomerular Filt Rate 95 ml/min (>60); GFR (African American) 115 ML/MIN (>60); Glucose 139 mg/dl (74-100); Potassium 4.4 mmoL/L (3.5-5.1); Sodium 136 mmol/L (136-145)
[2021-03-01 08:00] VITALS: BP 110/69; PULSE 62; RESP 16; TEMP 37.1; O2SAT 96
--- NOTE | 2021-03-01 14:30 | HMH.PHAVTE ---
[facility] VTE Monitoring - Patient Demographics Admission date: 03/01/21 Report Date: 03/01/21 Time: 14:30 Allergies/Adverse Reactions: Patient Allergies No Known Allergies Allergy (Verified 01/30/21 15:44) Height: 1.8 m Weight: 77.111 kg Patient Problems: Current Active Problems COVID-19 (Acute) Pneumonia (Acute) CAD (coronary artery disease) (Acute) Respiratory failure with hypoxia (Acute) - VTE Risk Labs: VTE Related Lab Results Hgb 14.8 g/dL (14.1-18.0) 03/01/21 06:23 Hct 45.4 % (42.0-52.0) 03/01/21 06:23 Plt Count 258 K/mm3 (142-424) 03/01/21 06:23 BUN 11 mg/dl (9-20) 03/01/21 06:23 Creatinine 0.80 mg/dl (0.66-1.25) 03/01/21 06:23 Estimated Creat Clear 72 mL/min (50-200) 03/01/21 06:23 Was VTE Risk Assessment Performed: Yes VTE Score: 5 VTE Risk Level: Low Risk - Prophylaxis Types of VTE Prophylaxis: Pharmacological Pharmacologic Type: Enoxaparin (LOVENOX ORDERED)
[2021-03-01 15:35] VITALS: BP 110/67; PULSE 71; RESP 18; TEMP 36.8; O2SAT 96
[2021-03-01 17:44] LABS: POC Glucose,Bedside 228 (70-110)
[2021-03-01 20:00] VITALS: BP 122/70; PULSE 69; RESP 16; TEMP 36.4; O2SAT 95
[2021-03-01 21:08] VITALS: BMI 23.7
[2021-03-01 21:40] LABS: POC Glucose,Bedside 189 (70-110)
[2021-03-01 22:25] LABS: POC Glucose,Bedside 158 (70-110)
[2021-03-02] VITALS: BP 110/64; PULSE 66; RESP 19; TEMP 36.6; O2SAT 92
[2021-03-02 04:00] VITALS: BP 111/65; PULSE 62; RESP 17; TEMP 36.6; O2SAT 92
[2021-03-02 05:00] VITALS: BMI 23.7
[2021-03-02 05:31] LABS: POC Glucose,Bedside 114 (70-110)
[2021-03-02 07:54] VITALS: BP 126/74; PULSE 69; RESP 16; TEMP 36.9; O2SAT 90
--- NOTE | 2021-03-02 08:31 | HMH.DCSUM ---
General - General Admission date:: 02/28/21 Discharge date: 03/02/21 HPI HPI: 75-year-old male presented to the hospital with 2 to 3 days of exertional dyspnea and hypoxia at home. Patient was diagnosed with COVID-19 infection in mid January. Symptoms started on January 28 with positive testing on January 30. Patient was able to remain out of the hospital and during that time monitoring himself at home. He reports oxygen sats as low as 88% during his time of COVID. By Jamari clay patient reports he had improved although since that time he has not returned to baseline. Approximately 3 days prior to admission patient felt like his symptoms were returning and he was declining with increased chest congestion, cough with scant sputum production that was yellow, and severe dyspnea on exertion. Patient presented to the ER. Patient was found to be hypoxic with chest x-ray and CT scan confirming the presence of bilateral infiltrates. Hypoxia was corrected with supplemental oxygen. Patient has been admitted with diagnosis of pneumonia and respiratory failure. Patient denies recent fever or chills. He does admit URI symptoms of rhinorrhea. Hospital Course Hospital Course: Patient was admitted for treatment of pneumonia with possibility of delayed inflammatory response from COVID-19 infection 30 days prior. Patient was placed on Rocephin and azithromycin to cover community-acquired pneumonia, supplemental oxygen for his respiratory failure, intravenous dexamethasone for the inflammatory response. Patient's symptoms of cough, chest congestion and dyspnea improved within 48 hours and he was weaned to room air. Patient was transitioned to oral steroids. Patient tolerated treatments well. Patient reported significant improvement in how he was feeling on the day of discharge. Patient will follow-up in my office on March 07 Objective Vital signs: Temp Pulse Resp BP Pulse Ox 98.4 F 69 16 126/74 90 L 03/02/21 07:54 03/02/21 07:54 03/02/21 07:54 03/02/21 07:54 03/02/21 07:54 no acute distress - *Routine Respiratory Exam Present: rhonchi (right mid lung) - *Routine Cardiovascular Exam Present: RRR - *Routine Abdominal Exam Present: soft, normoactive bowel sounds. Absent: tenderness - *Routine Extremities Exam Absent: edema Results Labs on day of discharge: Labs from last 24 hours 03/02/21 03/01/21 03/01/21 05:20 20:59 17:15 Sodium Potassium Chloride Carbon Dioxide Anion Gap BUN Creatinine Estimated Creat Clear Estimated GFR Est GFR ( Amer) Glucose POC Glucose 114 H 189 H 228 H Calcium 03/01/21 03/01/21 11:14 06:23 Sodium 136 Potassium 4.4 Chloride 99 Carbon Dioxide 30 Anion Gap 11.4 BUN 11 Creatinine 0.80 Estimated Creat Clear 72 Estimated GFR 95 Est GFR ( Amer) 115 D Glucose 139 H POC Glucose 158 H Calcium 9.5 DS: Diagnosis - Discharge Diagnosis (1) Pneumonia Status: Acute (2) CAD (coronary artery disease) Status: Acute (3) Respiratory failure with hypoxia Status: Acute Discharge Plan - Patient Discharge Instructions ACTIVITY: Continue current activity DIET: continue same diet Patient Instructions: DI for Pneumonia -- Adult, DI for Respiratory Failure, DI for Hypoxia, DI for COVID-19 (Suspected or Confirmed ), Nutrition and Hydration: [employer] in the Fight Against COVID-19 - Follow up Plan Follow up with: Milan Romeo MD [Staff Physician] - 03/07/21 Disposition: Home, Self-Care Condition at discharge:: Improved Home Medications: Home Medications Medication Instructions Recorded Confirmed Type Metoprolol Tartrate [Lopressor 25 mg PO DAILY 02/16/19 02/28/21 History 25mg tablet] Niacin [Niacin ER] 1,000 mg PO DAILY 02/16/19 02/28/21 History Simvastatin 20 mg PO HS 02/16/19 03/01/21 History Terazosin HCl [Hytrin 5mg Capsule] 5 mg PO D
--- NOTE | 2021-03-02 09:56 | PC.NURSE ---
pt has been discahrged from the facility. He verbalized understanding of all discharge education and follow up appts. IV discontinued. He denies SOA and reports feeling much better.
== END 2021-03-02 09:50 | disposition home or self-care (01) ==
LOC: UTC 10:53 → ER 12:24 → 2ND 03-01 07:26
PROVIDERS: Admitting Provider Family Medicine; Emergency Provider Emergency Medicine; Visit Provider Family Medicine
DX: J96.01 Acute respiratory failure with hypoxia; Z86.16 Personal history of COVID-19; E11.9 Type 2 diabetes mellitus without complications; Z79.4 Long term (current) use of insulin; I25.10 Atherosclerotic heart disease of native coronary artery without angina pectoris; I10 Essential (primary) hypertension; Z79.899 Other long term (current) drug therapy; J18.9 Pneumonia, unspecified organism; R06.02 Shortness of breath; Z20.822 Contact with and (suspected) exposure to COVID-19
CPT/HCPCS: G0378; 36415; 71046; 71275; 80048; 80053; 82728; 82962; 83605; 83615; 84145; 84484; 85025; 85378; 85651; 86140; 87040; 87581; 87632; 87798; 93005; 93970; 99284; C9803; J0456; J0696; Q9967; U0003; U0005

== ENCOUNTER 2022-05-22 15:15 | Emergency (ER) | payer MEDICARE, SELFPAY ==
[2022-05-22 15:25] VITALS: BP 151/84; PULSE 80; RESP 16; TEMP 36.8; O2SAT 96; BMI 27.8
--- NOTE | 2022-05-22 16:05 | EXP.UTC ---
Discharge Plan Disposition Patient Disposition: Home, Self-Care Condition: Good Prescriptions Prescriptions: New metformin 500 mg tablet 500 mg PO TIDWMEAL Qty: 90 0RF No Action terazosin 5 MG capsule 5 mg PO DAILY niacin 1,000 MG tablet extended release 24 hr 1,000 mg PO DAILY simvastatin 20 MG tablet 20 mg PO HS metoprolol tartrate 25 MG tablet 25 mg PO DAILY aspirin 81 MG tablet,delayed release (DR/EC) 162 mg PO DAILY prednisone 20 MG tablet 40 mg PO DAILY Qty: 10 0RF levofloxacin 750 MG tablet 750 mg PO DAILY Qty: 5 0RF Referrals Follow up/Referrals: Provider,Referral, MD [Primary Care Provider] - See instructions Clinical Impressions Clinical Impression: Type 2 diabetes mellitus Instructions Patient Instructions: DI for Diabetes Type 1 -- Adult, Green Leafy Vegetables May Decrease Risk of Type 2 Diabetes, Lifestyle Changes as Effective as Drugs in Preventing Progression to Diabet, What to Eat if You Have Diabetes Discharge ED Provider: Janay Adhikari [facility] [place] General Stated complaint: Blood sugar high Mode of Arrival: Ambulatory Source of Information: Patient Limitations: No Limitations Time Seen by Provider: 05/22/22 16:04 Description of Symptoms (Recalled from Triage Doc. by RN): PATIENT REPORTS ELEVATED BLOOD SUGARS AT HOME FOR THE LAST FEW DAYS. HE ALSO C/O SHAKINESS FOR THE PAST COUPLE OF WEEKS HEENT Symptoms (Recalled from RN notes): No Resp Symptoms (Recalled from RN notes): No Skin Symptoms (Recalled from RN notes): No MS Symptoms (Recalled from RN notes): No Functional Status (Recalled from RN notes): WNL History of Present Illness Provider Complaint: Pt is concerned as he has an elevated blood sugar that was as high as 300 last night. Pt states that he has felt right and has been checking his blood sugar which has been consistently high. He states that he has not seen his PCP in a year. Related Data Home Medications Medication Instructions Recorded Confirmed metoprolol tartrate 25 mg tablet 25 mg PO DAILY blood pressure 02/16/19 02/28/21 niacin 1,000 mg tablet,extended 1,000 mg PO DAILY Supplement 02/16/19 02/28/21 release 24 hr simvastatin 20 mg tablet 20 mg PO HS cholestrol 02/16/19 03/01/21 terazosin 5 mg capsule 5 mg PO DAILY urination 02/16/19 02/28/21 aspirin 81 mg tablet,delayed 162 mg PO DAILY CIRCULATION 03/01/21 03/01/21 release Previous Rx's Medication Instructions Recorded levofloxacin 750 mg tablet 750 mg PO DAILY #5 tabs 03/02/21 prednisone 20 mg tablet 40 mg PO DAILY #10 tabs 03/02/21 metformin 500 mg tablet 500 mg PO TIDWMEAL #90 tabs 05/22/22 Allergies Allergy/AdvReac Type Severity Reaction Status Date / Time No Known Allergies Allergy Verified 01/30/21 15:44 Worker's Comp Is this a Worker's Comp case?: No [facility] Disclaimer: The information contained in this section may have been updated after the patient was seen, as this information can be updated by other users. Social History Smoking Status: Never smoker second hand exposure: No alcohol intake: never substance use type: denies use current occupational status: retired Travel in the last 8 weeks: None household members: none housing: house current occupational exposures/hazards: No caffeine: Yes ROS Obtained: Yes All systems reviewed & no additional complaints except as documented Constitutional Constitutional: Reports system reviewed and no additional complaints, except as documented Eyes Eyes: Reports system reviewed and no additional complaints, except as documented ENT Ears, Nose, Mouth, and Throat: Reports system reviewed and no additional complaints, except as documented Cardiovascular Cardiovascular: Reports system reviewed and no additional complaints, except as documented Respiratory Respiratory: Reports system reviewed and no additional complaints, except as documented Gastrointestinal Gastroi
[2022-05-22 16:30] VITALS: BP 151/84; PULSE 80; RESP 16; TEMP 36.8; O2SAT 96
[2022-07-16 06:30] LABS: POC Glucose,Bedside 245 (70-110)
== END 2022-05-22 16:37 | disposition home or self-care (01) ==
PROVIDERS: Emergency Provider Nurse Practitioner Family
DX: E11.9 Type 2 diabetes mellitus without complications (principal); Z79.84 Long term (current) use of oral hypoglycemic drugs
CPT/HCPCS: 82962; 99212; 99214; G0463

== ENCOUNTER 2025-01-05 13:13 | Emergency (ER) | payer MEDICARE, SELFPAY ==
[2025-01-05 13:18] VITALS: BP 157/88; PULSE 76; RESP 14; TEMP 36.6; O2SAT 97; BMI 26.2
--- NOTE | 2025-01-05 13:26 | CT_ITS ---
FINAL REPORT TECHNIQUE: After the administration of oral and intravenous contrast, axial images were obtained through the abdomen and pelvis by computed tomography. The study was performed with techniques to keep radiation dose as low as reasonably achievable, (ALARA). Individual dose reduction techniques using automated exposure control or adjustment of mA and/or kV according to the patient's size were employed. CLINICAL HISTORY: Abd Pain COMPARISON: None FINDINGS: Abdomen: Scar and/or atelectasis are present in the lung bases. The liver parenchyma demonstrates fatty infiltration. The gallbladder is absent. The spleen, pancreas and kidneys appear unremarkable. Mild bilateral adrenal hyperplasia is present. The aorta is normal in caliber. There is no free fluid or adenopathy. There is moderate descending and sigmoid diverticulosis. Pelvis: The appendix is not identified. The urinary bladder is unremarkable. There is no free fluid or adenopathy. There is diffuse enlargement of the prostate, which measures 7.0 x 6.5 cm in size. IMPRESSION: No acute intra-abdominal process. Reviewed, Interpreted and Dictated by Mohinder Mendes MD Transcribed by Vikki Gee Authenticated and . [facility]
--- NOTE | 2025-01-05 13:27 | ED_ITS ---
<Statement entered by Armando Nuñez MD - 01/06/25 07:18> I was consulted by the MANJIT, and we discussed the complexity of the problems being addressed. I approve the treatment and management plan for this patient's care in the emergency department, thus performing a substantive portion of the medical decision making. Armando Nuñez MD Discharge Plan Disposition Patient Disposition: Home, Self-Care Prescriptions Prescriptions: New sulfamethoxazole-trimethoprim [Bactrim DS] 800-160 mg tablet 1 tab PO Q8H 21 Days Qty: 63 0RF No Action ascorbate calcium (vitamin C) 500 mg tablet 500 mg PO DAILY cyanocobalamin (vitamin B-12) 1,000 mcg capsule 1,000 mcg PO DAILY simvastatin 40 mg tablet 40 mg PO DAILY metformin 500 mg tablet 500 mg PO BID niacin 500 mg tablet 500 mg PO DAILY mecobalamin (vitamin B12) 5,000 mcg tablet,chewable 5,000 mcg PO DAILY nitroglycerin 0.3 mg tablet, sublingual 0.3 mg sublingual Q5M PRN Rx Instructions: do not exceed 3 doses per episode glipizide 5 mg tablet 5 mg PO BID terazosin 5 MG capsule 5 mg PO DAILY metoprolol tartrate 25 MG tablet 25 mg PO DAILY aspirin 81 MG tablet,delayed release (DR/EC) 162 mg PO DAILY Referrals Follow up/Referrals: Milan Romeo MD [Primary Care Provider, Medical] - See instructions Activity Restrictions/Add. Instructions Additional Instructions/Restrictions: Today you were evaluated in the emergency department and diagnosed with prostatitis. Please take your antibiotic as directed, it may be easier on your stomach if you take this antibiotic after a full meal. You have a follow up at with Dr. Catherine this coming Wednesday at 10:00am. If your condition worsens before then, please return to the ED immediately. Clinical Impressions Clinical Impression: Enlarged prostate, Prostatitis Instructions Patient Instructions: Prostatitis Print Language Print Language: Kazakh Discharge ED Provider: Armando Nuñez General Adult HPI General Chief complaint: Urogenital-Male Stated complaint: R side pain, back pain, low urine Time Seen by Provider: 01/05/25 13:16 History of Present Illness HPI narrative: patient is a 79-year-old male PMHx CAD, hypertension, hyperlipidemia, diabetes, history of prostatitis who presents to the ED for complaints of right sided CVA pain x 3 days, chills, discomfort during urination. Patient states he has a history of prostatitis and this feels similar. Related Data Home Medications ?Medication ?Instructions ?Recorded ?Confirmed metoprolol tartrate 25 mg tablet 25 mg PO DAILY blood pressure 02/16/19 07/20/22 terazosin 5 mg capsule 5 mg PO DAILY urination 04/0607/20/22 aspirin 81 mg tablet,delayed 162 mg PO DAILY CIRCULATI ON 03/01/21 07/20/22 release glipizide 5 mg tablet 5 mg PO BID 06/15/22 3 mecobalamin (vitamin B12) 5,000 5,000 mcg PO DAILY 03/0907/20/22 mcg chewable tablet metformin 500 mg tablet 500 mg PO BID 06/15/2207/20 niacin 500 mg tablet 500 mg PO DAILY 06/15/2207/07 nitroglycerin 0.3 mg sublingual 0.3 mg sublingual Q5M PRN 06/15/22 07/20/22 tablet simvastatin 40 mg tablet 40 mg PO DAILY 06/15/2207/07 ascorbate calcium (vitamin C) 500 500 mg PO DAILY 07/0707/20/22 mg tablet cyanocobalamin (vitamin B-12) 1,000 mcg PO DAILY 07/2007/20/22 1,000 mcg capsule Previous Rx's ?Medication ?Instructions ?Recorded sulfamethoxazole 800 1 tab PO Q8H 21 days #63 tab s 01/05/25 mg-trimethoprim 160 mg tablet (Bactrim DS) Allergies Allergy/AdvReac Type Severity Reaction Status Date / Time No Known Allergies Allergy Verified 01/05/25 13:51 [facility] Disclaimer: The information contained in this section may have been updated after the patient was seen, as this information can be updated by other users. Medical History (Updated 01/05/25 @ 15:18 by Laxmi Helton APRN) Prostate hypertrophy Tremor Hypertension Hyperlipidemia Type 2 diabetes mellitus CAD (coronary artery disease) Surgical History (Updated 06/15/22 @ 08:42 by Linda Lamas) History of cholecystectomy History of four vessel coronary artery bypass graft History of cataract surgery History of colonoscopy Family History (Updated 06/15/22 @ 08:22 by Linda Lamas) Other Coronary artery disease Stroke Social History (Updated 06/15/22 @ 08:22 by iLnda Lamas) Smoking Status: Never smoker smoking status stop date: 1999 second hand exposure: No alcohol intake: never substance use type: denies use current occupational status: retired Travel in the last 8 weeks?: None household members: none housing: house current occupational exposures/hazards: No caffeine: Yes Other Medical History Have you received the Flu Vaccine for this season: No Have you received the Pneumonia Vaccine: Yes ROS Obtained: Yes Systems reviewed as appropriate & no additional complaints except as documented Physical Exam General General appearance: alert Head Head exam: normocephalic Eye Eye exam: Present PERRL Neck Neck exam: Present full ROM; Absent tenderness Chest Chest inspection: Present normal inspection Respiratory Respiratory exam: Present normal lung sounds bilaterally Cardiovascular Cardiovascular exam: Present regular rate Abdominal Exam Abdominal exam: Present soft Back Exam Back exam: Present CVA tenderness (R) Neurological Exam Neurological exam: Present alert, oriented X3 and other (left hand tremor ) Skin Skin exam: Present warm and dry Medical Decision Making Medical Records Screening: Per USPSTF and CDC recommendations, given the prevalence of disease in our region, it is our hospital?s policy to screen for HIV and viral Hepatitis for all patients aged 18 and over and those with ongoing risk factors. S[place]hi Inquiry Pt receiving controlled substance: No Vital Signs: 01/05/25 13:18 01/05/25 13:30 01/05/25 14:08 Temperature 98 F Temperature Source Oral Pulse Rate 71 73 Pulse Rate [Right] 76 Respiratory Rate 14 Blood Pressure 143/124 H Blood Pressure [Right Arm] 157/88 H Blood Pressure Mean [Right Arm] 111 Blood Pressure Source Blood Pressure Source [Right Arm] Automatic Cuff Blood Pressure Position Blood Pressure Position [Right Arm] Sitting 02 Sat by Pulse Oximetry 97 92 L 93 L Oxygen Delivery Method Room Air Room Air 01/05/25 14:30 01/05/25 15:00 01/05/25 15:25 Temperature 98.0 F Temperature Source Oral Pulse Rate 71 70 68 Pulse Rate [Right] Respiratory Rate 18 Blood Pressure 120/71 131/74 131/74 Blood Pressure [Right Arm] Blood Pressure Mean [Right Arm] Blood Pressure Source Automatic Cuff Blood Pressure Source [Right Arm] Blood Pressure Position Sitting Blood Pressure Position [Right Arm] 02 Sat by Pulse Oximetry 94 L 96 Oxygen Delivery Method Room Air Room Air Room Air Lab Data Lab Results 01/05/25 13:16: WBC 10.5, RBC 5.08, Hgb 17.1, Hct 47.9, MCV 94.3 H, MCH 33.7 H, MCHC 35.7 H, RDW 12.4, Plt Count 158, MPV 10.2, Neut % (Auto) 71.0, Lymph % (Auto) 18.3, Reagan % (Auto) 7.4, Eos % (Auto) 2.2, Baso % (Auto) 0.6, Neut # (Auto) 7.5, Lymph # (Auto) 1.9, Reagan # (Auto) 0.8, Eos # (Auto) 0.2, Baso # (Auto) 0.1, Sodium 134 L, Potassium 3.9, Chloride 99, Carbon Dioxide 25, Anion Gap 13.9, BUN 12, Creatinine 1.00, Estimated GFR 72, Est GFR ( Amer) 88, Glucose 172 H, Lactate 2.7 H, Calcium 9.8, Total Bilirubin 1.5 H, AST 36, ALT 32, Alkaline Phosphatase 95, Total Protein 7.9, Albumin 5.1 H, Globulin 2.8, Albumin/Globulin Ratio 1.8, Urine Color Yellow, Urine Appearance Clear, Urine pH 6.0, Ur Specific [place] 1.020, Urine Protein Negative, Urine Glucose (UA) Negative, Urine Ketones Trace, Urine Blood Negative, Urine Nitrate Negative, Urine Bilirubin Negative, Urine Urobilinogen 0.2, Ur Leukocyte Esterase Negative, Urine RBC Occasional, Urine WBC Occasional, Ur Squamous Epith Cells 10-20, Urine Bacteria 1+ 01/05/25 13:25: HCV Ab ODALIS w/Rflx PCR Qn Negative, HIV Ag/Ab Combo Qual Negative 01/05/25 13:16 01/05/25 13:16 Orders (Tests/Meds): ED MEDICATIONS Discontinued Medications Generic Name Dose Route Start Last Admin Trade Name Freq PRN Reason Stop Dose Admin Sodium Chloride 1,000 mls @ 999 mls/hr 01/05/25 13:26 01/05/25 15:26 Sod Chlor 0.9% 1000ml Bag IV 01/05/25 14:26 Infused .Q1H1M ONE Infusion Iopamidol 75 ml 01/05/25 14:04 01/05/25 14:04 Iopamidol-370 (76%);100ml Bottle IV 01/05/25 14:05 75 ml ONCE ONE Administration Sodium Chloride 10 ml 01/05/25 14:04 01/05/25 14:04 Sodium Chloride 0.9% 10ml Syr (Rad Only) IV 01/05/25 14:05 10 ml ONCE ONE Administration ORDERS Category Date Time Status CT abdomen pelvis w con Stat Cat Scan 01/05/25 13:26 Completed CBC w/Auto Diff [Complete Blood Count Auto Diff] Stat Lab 01/05/25 13:16 Completed CMP [Comprehensive Metabolic Panel] Stat Lab 01/05/25 13:16 Completed HIV Combo Stat Lab 01/05/25 13:25 Completed Hepatitis C Ab Qual. W/ RFX Stat Lab 01/05/25 13:25 Completed Lactic Acid Stat Lab 01/05/25 13:16 Completed Urinalysis and Microscopic Stat Lab 01/05/25 13:16 Completed Medical Decision Narrative: In summary, patient is a 79-year-old male PMHx CAD, hypertension, hyperlipidemia, diabetes, history of prostatitis who presents to the ED for complaints of right sided CVA pain x 3 days, chills, discomfort during urination. Patient states he has a history of prostatitis and this feels similar. He states he has not had prostatitis in several years, has not been ill since approximately 2020 or 2021 when he had pneumonia. Has not been on any recent antibiotics. He lives at home by himself. Has not taken anything prior to arrival for pain. He states that the pain is intermittent, currently a 1/10. Denies fever, headache, visual disturbances, chest pain, shortness of breath, dysuria, diarrhea. Upon initial presentation patient is alert, oriented and cooperative. Physical exam remarkable for left hand tremor, right CVA tenderness. Patient is very pleasant. Differential diagnosis include sepsis, abscess, pyelonephritis, prostatitis, tumor, infectious process, among others. Discussed with patient we will proceed with labs, CT scan of the abdomen and pelvis and urinalysis. Advised him we will administer IV fluids and if he needs anything for pain to let us know. Labs reviewed. CBC unremarkable for any leukocytosis, stable H&H. CMP remarkable for lactate 2.7, otherwise no actionable abnormalities. Urinalysis unremarkable for any nitrate, leuk esterase. CT unremarkable for any acute abnormality, enlarged prostate noted. Discussed with patient he is experiencing most likely prostatitis, we will place him on Bactrim x 21 days. Due to difficulty emptying bladder, shared decision making was used, had an interactive discussion with the patient about placing a Andino catheter to which he declined. We called Dr. Catherine's office and obtained an appointment for this coming Wednesday at 10 AM. Discussed follow-up with patient, he is agreeable. We discussed increasing fluid intake, rest and returning to the ED for any worsening of condition. Critical Care Critical Care Time Critical Care Time: No
[2025-01-05 13:30] VITALS: BP 143/124; PULSE 71; O2SAT 92
[2025-01-05 13:34] LABS: Microscopic, Urine URINE MICROSCOPIC (MICROSCOPIC)
[2025-01-05] MEDS: 0.9 % SODIUM CHLORIDE 1000ML 1,000 ML 999 ML IV (13:34)
[2025-01-05 13:35] LABS: Hematocrit 47.9 % (42.0-52.0); Hemoglobin 17.1 g/dL (14.1-18.0); Immature Granulocytes % 0.5 %; Mean Corpuscular HGB Conc 35.7 g/dL (31.8-35.4); Mean Corpuscular Hemoglobin 33.7 pg (27.0-31.2); Mean Corpuscular Volume 94.3 fl (80-94); Nucleated Red Blood Cells % 0 %; Platelet Count 158 K/mm3 (142-424); Red Blood Count 5.08 M/mm3 (4.60-6.20); Red Cell Distribution Width-SD 43.0 fL; White Blood Count 10.5 K/mm3 (4.8-10.8)
[2025-01-05 13:37] LABS: Bilirubin,Urine Negative (Negative); Color,Urine YELLOW (Yellow); Glucose,Urine (UA) Negative (Negative); Ketones,Urine TRACE (Negative); Leukocyte Esterase,Urine Negative (Negative); PH,Urine 6.0 (5.0-8.5); Protein,Urine Negative (Negative); Specific Gravity, Urine 1.020 (1.005-1.030); Urobilinogen,Urine 0.2 EU/dl (0.2)
--- OUTSIDE RECORDS SUMMARY | 2025-01-05 13:39 | XMS_ITS | Clinical Summary ---
[facility] Organization [facility] Address [address] [place] [address] Care Team Providers Care Bean Weigher Name Role Phone Milan Romeo MD Primary Care Provider + Allergies No known active allergies Medications aspirin 81 MG EC tablet Take 2 tablets by mouth Daily. Active NIACIN PO Take 1 tablet by mouth Daily. Active Alcohol Swabs padsIndications: Type 2 diabetes mellitus without complication, without long-term current use of insulin Use to test once daily / Dx: E11.65 100 each 3 4 Active Microlet Lancets miscIndications: Type 2 diabetes mellitus without complication, without long-term current use of insulin Test once daily / dx: E11.65 100 each 3 4 Active nitroglycerin (Nitrostat) 0.4 MG SL tabletIndication s:Coronary artery disease involving solomon coronary artery of solomon heart without angina pectoris PLACE 1 TAB UNDER TONGUE IF NEEDED FOR CHEST PAIN. MAY REPEAT EVERY 5 MIN UP TO 3 DOSES. 100 tablet 4 Active glucose blood (Accu-Chek Payton Plus) test stripIndications :Type 2 diabetes mellitus without complication, without long-term current use of insulin TEST BLOOD SUGAR EVERY DAY 100 each 3 5 Active glipizide (GLUCOTROL) 5 MG tabletIndication s:Type 2 diabetes mellitus without complication, without long-term current use of insulin TAKE ONE TABLET EVERY MORNING AND 1/2 TABLET WITH EVENING MEAL 135 tablet 3 5 Active metoprolol succinate XL (TOPROL-XL) 50 MG 24 hr tabletIndication s:Coronary artery disease involving solomon coronary artery of solomon heart without angina pectoris TAKE 1/2 TABLET EVERY DAY 45 tablet 3 5 Active terazosin (HYTRIN) 5 MG capsuleIndicatio ns:Benign prostatic hyperplasia with lower urinary tract symptoms, symptom details unspecified TAKE 1 CAPSULE EVERY NIGHT 90 capsule 3 5 Active simvastatin (ZOCOR) 40 MG tabletIndication s:Coronary artery disease involving solomon coronary artery of solomon heart without angina pectoris TAKE 1 TABLET EVERY NIGHT 90 tablet 3 5 Active metFORMIN ER (GLUCOPHAGE-XR) 500 MG 24 hr tabletIndication s:Type 2 diabetes mellitus without complication, without long-term current use of insulin TAKE 2 TABLETS EVERY DAY WITH BREAKFAST 180 tablet 3 5 Active Active Problems Problem Noted Date Diagnosed Date Type 2 diabetes mellitus wit hout complication, without long-term current use of insulin 06/08/2022 Assessment & Plan (01/06/2024 9:55 AM EST): Stable. A1c-7. Continue current meds Orders: Lipid Panel POC Glycosylated Hemoglobin (Hb A1C) Assessment & Plan (06/18/2023 8:41 AM EDT): Diabetes is stable. Continue current treatment regimen. Diabetes will be reassessed in 6 months Assessment & Plan (09/08/2022 8:40 AM EDT): Diabetes is improving with treatment. Discussed ways to avoid symptomatic hypoglycemia. Eye exam completed Diabetes will be reassessed in 3 months. A1c has been ordered. If diabetes control has improved I will reduce his evening dose of glipizide to 2.5 mg Assessment & Plan (06/08/2022 1:19 PM EDT): Diabetes is worsening. Labs ordered to assess Diabetes will be reassessed in 3 months. Essential hypertension 03/13/2020 Assessment & Plan (01/06/2024 9:55 AM EST): Orders: Basic Metabolic Panel Lipid Panel Assessment & Plan (06/18/2023 8:41 AM EDT): Hypertension is stable and controlled Continue current treatment regimen. Blood pressure will be reassessed in 6 months. Assessment & Plan (09/08/2022 8:41 AM EDT): Hypertension is at goal . Continue current treatment regimen. Blood pressure will be reassessed in 3 months. No change will be made to his beta-inessa at this time and we will keep this is an option should tremors worsen Assessment & Plan (06/08/2022 1:19 PM EDT): Hypertension is At goal. Continue current treatment regimen. Dietary sodium restriction. Regular aerobic exercise. Blood pressure will be reassessed in 3 months. Coronary artery disease 05/26/2016 Overview (05/26/2016): a. Symptoms of fatigue with bradycardia and associated chest pain with [facility] Emergency Room evaluation revealing acute myocardial infarction. b. Cardiac catheterization, 08/31/2006, Carol Talley MD, revealing an LVEF of 55% with severe 3 vessel disease. c. Status post coronary artery bypass grafting x4, 09/03/2006, Matt Moser MD with a saphenous vein graft to the diagonal and circumflex, and another saphenous vein graft to the PDA with a LOJA to the LAD. d. Stress testing, 2008, which was reportedly normal, data deficient. e. Patient is currently asymptomatic, 08/04/2014 Assessment & Plan (01/06/2024 9:55 AM EST): Orders: Basic Metabolic Panel Lipid Panel CBC & Differential Assessment & Plan (06/18/2023 8:41 AM EDT): Coronary Artery Disease (OPTIONAL): Coronary artery disease is stable. Continue current treatment regimen. Cardiac status will be reassessed in 6 months. Assessment & Plan (06/08/2022 1:20 PM EDT): Coronary artery disease is Stable. Continue current treatment regimen. Cardiac status will be reassessed in 3 months. Hyperlipidemia 07/16/2014 Overview (05/26/2016): with acceptable profile Benign prostatic hypertrophy Assessment & Plan (06/18/2023 8:41 AM EDT): Condition stable. Continue current medication. Reassess in 6 months Immunizations Immunization Administration Dates Next Due FLUAD TRI 65YR+ 11/27/2018 Fluzone High-Dose 65+YRS 10/11/2019 Influenza, Unspecified 11/26/2018 Family History Medical History Relation Name Comments Diabetes Father A Heart attack Father A Coronary artery disease Mother A Heart attack Mother A Hyperlipidemia Mother A Coronary artery disease Other Relation Name Status Comments Brother (Age 61) stroke Father A (Age 73) heart hal ck Mother A (Age 64) stroke Other Social History Tobacco Use Types Packs/Day Years Used Date Smoking Tobacco: Former Cigarettes Q uit: 02/15/2002 Smokeless Tobacco: Never Tobacco Cessation:Counseling Given: Not Answered Alcohol Use Standard Drinks/Week Comments No 0 (1 standard drink = 0.6 oz pur e alcohol) PHQ-2 Answer Date Recorded Retired PHQ-9: Brief Depression Severity Measure Score 0 12/10/2022 PHQ-2 Answer Date Recorded Patient Health Questionnaire-2 Score 0 07/06/2024 Sex and Gender Information Value Date Recorded Sex Assigned at Male 06/29/2024 8:55 AM EDT Legal Sex Male 12:09 PM EDT Gender Identity Not on file Sexual Orientation Not on file Last Filed Vital Signs Vital Sign Reading Time Taken Comments Blood Pressure 124/78 07/06/2024 8:04 AM EDT Pulse 68 07/06/2024 8:04 AM EDT Temperature 36.4 C (97.5 F) 07/06/2024 8:04 AM EDT Respiratory Rate 16 07/06/2024 8:04 AM EDT Oxygen Saturation 95% 07/06/2024 8:04 AM EDT Inhaled Oxygen Concentration - - Weight 90.3 kg (199 lb) 07/06/2024 8:04 AM EDT Height 180.3 cm (5' 11 ) 07/06/2024 8:04 AM EDT Body Mass Index 27.75 07/06/2024 8:04 AM EDT Plan of Treatment Upcoming Encounters Date Type Department Care Team (Late st Contact Info) Description 01/16/2025 8:30 AM EST Office Visit [facility] [address] [facility] [place] [address] Milan Romeo MD [address] [place] [address] Health Maintenance Due Date Last Done Comments COVID-19 Vaccine (#1) 11/06/1952 DIABETIC EYE EXAM 11/06/1957 Pneumococcal Vaccine 50+ (1 of 2 - PCV) 11/06/1966 TDAP/TD VACCINES (1 - Tdap) 11/06/1966 COLOGUARD 11/06/1992 COLON CANCER SCREENING 5 YEA R SIGMOIDOSCOPY 11/06/1992 CT COLONOGRAPHY 11/06/1992 FECAL OCCULT BLOOD TEST 11/06/1992 FIT Testing (1 year) 11/06/1992 ZOSTER VACCINE (1 of 2) 11/06/1997 HEPATITIS C SCREENING 05/26/2016 RSV Vaccine - Adults (1 - 1- dose 75+ series) 11/06/2022 DIABETIC FOOT EXAM 06/09/2023 06/08/2022, 0 06/08/2022, 06/08/2022 ANNUAL PHYSICAL 12/11/2023 12/10/2022 INFLUENZA VACCINE 09/15/2024 10/11/2019, , 11/26/2018 LIPID PANEL 01/05/2025 01/06/2024, 11/16, 06/08/2022 HEMOGLOBIN A1C 01/06/2025 07/06/2024, 12/17, 06/18/2023, Additional history exists URINE MICROALBUMIN-CREATININ E RATIO (uACR) 07/06/2025 07/06/2024 COLONOSCOPY 02/24/2029 02/24/2019 COLORECTAL CANCER SCREENING 02/24/2029 Procedures Procedure Name Priority Date/Time Associated Diagnosis Comments HEMOGLOBIN A1C Routine 07/06/2024 9:18 AM EDT Type 2 diabetes mellitus without complication, without long-term current use of insulin POC ALBUMIN/CREATININE RATIO Routine 07/06/2024 8:36 AM EDT Type 2 diabetes mellitus without complication, without long-term current use of insulin LIPID PANEL Routine 01/06/2024 9:45 AM EST Coronary artery disease involving solomon coronary artery of solomon heart without angina pectoris Type 2 diabetes mellitus without complication, without long-term current use of insulin Essential hypertension SCANNED - COLONOSCOPY 02/24/2019 from Last 3 Months or Most Recently Relevant to Health Maintenance Results * (ABNORMAL) Hemoglobin A1c (07/06/2024 9:18 AM EDT) Hemoglobin A1C 7.00(H) 4.80 - 5.60 % [facility] Comment: Hemoglobin A1C Ranges: Increased Risk for Diabetes 5.7% to 6.4% Diabetes >= 6.5% Diabetic Goal < 7.0% Blood 07/06/2024 9:18 AM EDT 07/06/2024 Narrative [facility] (AMBULATORY) - 07/07/2024 3:07 AM EDT Performed at: [address] [place] [id number] Windshield Installer: Marco Antonio Ruiz MD, Phone: [phone] Patient Fasting: Y Milan Romeo MD LAB BLOOD ORDERABLES Fin al Result [facility] [facility] (AMBULATORY) [address] [id number], [facility] [address] [place] [address], [place] [phone] * POC Albumin/Creatinine Ratio Urine (07/06/2024 8:36 AM EDT) POC ALBUMIN, URINE 30 mg/l mg/L POC CREATININE, URINE 200 mg/dl mg/dL POC Urine Albumin Creatinine Ratio <30 mg/g <30 Lot Number [id number] Expiration Date 05/15/2025 Urine 07/06/2024 8:36 AM EDT Milan Romeo MD POINT OF CARE TEST ORDER CARMELO Final Result * (ABNORMAL) Lipid Panel (01/06/2024 9:45 AM EST) Total Cholesterol 99(L) 100 - 199 mg/dL [facility] Triglycerides 92 0 - 149 mg/dL [facility] HDL Cholesterol 41 >39 mg/dL [facility] VLDL Cholesterol Colt 18 5 - 40 mg/dL [facility] LDL Chol Calc (NIH) 40 0 - 99 mg/dL [facility] Blood 01/06/2024 9:45 AM EST 01/06/2024 Narrative [facility] (AMBULATORY) - 01/07/2024 5:09 AM EST Performed at: - [facility] [address] [place], [place] [id number] Windshield Installer: Tom Damian PhD, Phone: [phone] Patient Fasting: Y Milan Romeo MD LAB BLOOD ORDERABLES Fin al Result [facility] (AMBULATORY) [address] [place] [address], [facility] [address] [place] [address], * SCANNED - COLONOSCOPY (02/24/2019) Marco Antonio Bhatti MD CHART REVIEW TABS Jo l Result from Last 3 Months or Most Recently Relevant to Health Maintenance Insurance HUMAN Care Teams Bean Weigher Relationship Specialty Start Date End Date Milan Romeo MD [address] [place] [address] PCP - General Family Medicine 06/08/22
--- OUTSIDE RECORDS SUMMARY | 2025-01-05 13:39 | XMS_ITS | Encounter Summary ---
Author Organization [facility] Address [address] [place] [address] Care Team Providers Care Network Operations Project Manager Name Role Phone Milan Romeo MD Primary Care Provider + Encounter Details Date Type Department Care Team (Late Contact Info) Description 07/07/2024 Results Follow-Up [facility] [address] [facility] [place] [address] Milan Romeo MD [address] [facility] [place] [address] Social History Tobacco Use Types Packs/Day Years Used Date Smoking Tobacco: Former Cigarettes Q uit: 02/15/2002 Smokeless Tobacco: Never Alcohol Use Standard Drinks/Week Comments No 0 [...] on file Sexual Orientation Not on file documented as of this encounter Plan of Treatment Upcoming Encounters Date Type Department Care Team (Late Contact Info) Description 01/16/2025 8:30 AM EST Office Visit [facility] [address] [facility] [place] [address] Milan Romeo MD [address] [place] [address] documented as of this encounter Visit Diagnoses Not on filedocumented in this encounter Care Teams Network Operations Project Manager Relationship Specialty Start Date End Date Milan Romeo MD [address] [place] [address] PCP - General Family Medicine 06/08/22 documented as of this encounter
[2025-01-05 13:46] LABS: Alanine Aminotransferase 32 U/L (12-78); Albumin Level 5.1 g/dl (3.5-5.0); Albumin/Globulin Ratio 1.8 (1.1-1.8); Alkaline Phosphatase 95 U/L (38-126); Anion Gap 13.9 mEq/L (5-15); Aspartate Amino Transferase 36 U/L (17-59); Bilirubin,Total 1.5 mg/dl (0.2-1.3); Blood Urea Nitrogen 12 mg/dl (9-20); Calcium 9.8 mg/dl (8.4-10.2); Carbon Dioxide 25 mmol/L (22.0-30.0); Chloride 99 mmol/L (98-107); Creatinine,Serum 1.00 mg/dl (0.66-1.25); Estimated Glomerular Filt Rate 72 ml/min (>60); GFR (African American) 88 ML/MIN (>60); Globulin 2.8 g/dL (1.3-3.2); Glucose 172 mg/dl (74-100); Potassium 3.9 mmoL/L (3.5-5.1); Sodium 134 mmol/L (136-145); Total Protein,Serum 7.9 g/dl (6.3-8.2)
[2025-01-05] MEDS: IOPAMIDOL-370 (76%);100ML BOTTLE 75 ML IV (14:04)
[2025-01-05] MEDS: SODIUM CHLORIDE 0.9% 10ML SYR (RAD ONLY) 10 ML IV (14:04)
[2025-01-05 14:08] VITALS: PULSE 73; O2SAT 93
[2025-01-05 14:29] LABS: Bacteria,Urine 1+ /lpf; RBC,Urine Occasional #/hpf (0-3); WBC,Urine Occasional #/hpf (0-3)
[2025-01-05 14:30] VITALS: BP 120/71; PULSE 71; O2SAT 94
[2025-01-05 15:00] VITALS: BP 131/74; PULSE 70; O2SAT 96
--- NOTE | 2025-01-05 15:19 | PC.NURSE ---
dr mary kay zurita wednesday at 10 am
[2025-01-05 15:25] VITALS: BP 131/74; PULSE 68; RESP 18; TEMP 36.7; O2SAT 95
[2025-01-05 15:26] LABS: Hepatitis C Ab Qual. W/ RFX NEGATIVE (Negative)
[2025-01-05 17:33] LABS: Reflex Lactic Add Lactic Reflex
== END 2025-01-05 15:26 | disposition home or self-care (01) ==
PROVIDERS: Nurse Practitioner; Emergency Provider Student in an Organized Health Care Education/Training Program; PCP Family Medicine
DX: R10.A1 Flank pain, right side (principal); N40.0 Benign prostatic hyperplasia without lower urinary tract symptoms; N41.9 Inflammatory disease of prostate, unspecified; R74.02 Elevation of levels of lactic acid dehydrogenase [LDH]; E87.1 Hypo-osmolality and hyponatremia; E11.65 Type 2 diabetes mellitus with hyperglycemia; I10 Essential (primary) hypertension; E78.5 Hyperlipidemia, unspecified; Z86.79 Personal history of other diseases of the circulatory system; Z95.1 Presence of aortocoronary bypass graft; Z79.84 Long term (current) use of oral hypoglycemic drugs
CPT/HCPCS: 74177; 80053; 81001; 83605; 85025; 86803; 87389; 96360; 99285; J7030; Q9967

== ENCOUNTER 2025-01-06 16:04 | Emergency (ER) | payer MEDICARE, SELFPAY ==
[2025-01-06] VITALS (7 sets, daily range): BP systolic 126–158; BP diastolic 73–94; PULSE 69–91; RESP 18–19; TEMP 36.7–36.8; O2SAT 92–97; BMI 26.4
--- NOTE | 2025-01-06 16:12 | ED_ITS ---
<Statement entered by Austin Gutierrez DO - 01/06/25 18:56> I was consulted by the MANJIT, and we discussed the complexity of problems being addressed. I approved the treatment and management plan for this patient's care in the emergency department, thus performing a substantive portion of the medical decision making. Austin Gutierrez DO Discharge Plan Disposition Patient Disposition: Home, Self-Care Prescriptions Prescriptions: No Action ascorbate calcium (vitamin C) 500 mg tablet 500 mg PO DAILY cyanocobalamin (vitamin B-12) 1,000 mcg capsule 1,000 mcg PO DAILY simvastatin 40 mg tablet 40 mg PO DAILY metformin 500 mg tablet 500 mg PO BID niacin 500 mg tablet 500 mg PO DAILY mecobalamin (vitamin B12) 5,000 mcg tablet,chewable 5,000 mcg PO DAILY nitroglycerin 0.3 mg tablet, sublingual 0.3 mg sublingual Q5M PRN Rx Instructions: do not exceed 3 doses per episode glipizide 5 mg tablet 5 mg PO BID sulfamethoxazole-trimethoprim [Bactrim DS] 800-160 mg tablet 1 tab PO Q8H 21 Days Qty: 63 0RF terazosin 5 MG capsule 5 mg PO DAILY metoprolol tartrate 25 MG tablet 25 mg PO DAILY aspirin 81 MG tablet,delayed release (DR/EC) 162 mg PO DAILY Referrals Follow up/Referrals: Milan Romeo MD [Primary Care Provider, Medical] - See instructions Activity Restrictions/Add. Instructions Additional Instructions/Restrictions: Today you were evaluated in the emergency department for urinary retention. We placed a Andino catheter, please follow-up with urology on Wednesday at 10 AM for your appointment. If your condition worsens please return to the ED immediately. Increase your fluid intake. Clinical Impressions Clinical Impression: Acute urinary retention, Andino catheter in place Instructions Patient Instructions: DI for Urinary Retention in Men Print Language Print Language: Kinyarwanda Discharge ED Provider: Austin Gutierrez General Adult HPI General Chief complaint: PAIN Stated complaint: cant not urinate Time Seen by Provider: 01/06/25 16:08 History of Present Illness HPI narrative: patient is a 79 year old male PMHx CAD, hypertension, hyperlipidemia, diabetes, history of respiratory failure, history of chronic prostatitis presents to the ED with urinary retention. Patient was evaluated in the ED yesterday for right flank pain and urinary retention. I performed his workup yesterday with lab work and a CT scan, showed enlarged prostate, patient was offered a Andino catheter yesterday however declined. Today he states he would like the Andino catheter. Related Data Home Medications ?Medication ?Instructions ?Recorded ?Confirmed metoprolol tartrate 25 mg tablet 25 mg PO DAILY blood pressure 02/16/19 07/20/22 terazosin 5 mg capsule 5 mg PO DAILY urination 04/0607/20/22 aspirin 81 mg tablet,delayed 162 mg PO DAILY CIRCULATI ON 03/01/21 07/20/22 release glipizide 5 mg tablet 5 mg PO BID 06/15/22 3 mecobalamin (vitamin B12) 5,000 5,000 mcg PO DAILY 03/0907/20/22 mcg chewable tablet metformin 500 mg tablet 500 mg PO BID 06/15/2207/20 niacin 500 mg tablet 500 mg PO DAILY 06/15/2207/07 nitroglycerin 0.3 mg sublingual 0.3 mg sublingual Q5M PRN 06/15/22 07/20/22 tablet simvastatin 40 mg tablet 40 mg PO DAILY 06/15/2207/07 ascorbate calcium (vitamin C) 500 500 mg PO DAILY 07/0707/20/22 mg tablet cyanocobalamin (vitamin B-12) 1,000 mcg PO DAILY 07/2007/20/22 1,000 mcg capsule Previous Rx's ?Medication ?Instructions ?Recorded sulfamethoxazole 800 1 tab PO Q8H 21 days #63 tab s 01/05/25 mg-trimethoprim 160 mg tablet (Bactrim DS) Allergies Allergy/AdvReac Type Severity Reaction Status Date / Time No Known Allergies Allergy Verified 01/05/25 13:51 [facility] Disclaimer: The information contained in this section may have been updated after the patient was seen, as this information can be updated by other users. Medical History (Updated 01/06/25 @ 17:58 by Laxmi Helton APRN) Prostate hypertrophy Tremor Hypertension Hyperlipidemia Type 2 diabetes mellitus CAD (coronary artery disease) Surgical History (Updated 06/15/22 @ 08:42 by Linda Lamas) History of cholecystectomy History of four vessel coronary artery bypass graft History of cataract surgery History of colonoscopy Family History (Updated 06/15/22 @ 08:22 by Linda Lamas) Other Coronary artery disease Stroke Social History (Updated 06/15/22 @ 08:22 by Linda Lamas) Smoking Status: Never smoker smoking status stop date: 1999 second hand exposure: No alcohol intake: never substance use type: denies use current occupational status: retired Travel in the last 8 weeks?: None household members: none housing: house current occupational exposures/hazards: No caffeine: Yes Have you lived/traveled outside US in past 30 days?: No Contact w/someone who lives/traveled outside US past 30 days?: No Exposure to someone with infectious disease in past 14 days?: No Do you have a fever (greater than 100.4 F or 38 C)?: No Have you tested positive for COVID-19?: No Exposed to someone with COVID-19 in past 14 days?: No Do you have a sore throat?: No Do you have a cough?: No Do you have any weakness?: No Do you have any diarrhea?: No Are you experiencing any unusual bleeding?: No Do you have any muscle aches/pain?: No Do you have any abdominal pain?: No Are you experiencing loss of taste or smell?: No Other Medical History Have you received the Flu Vaccine for this season: No Have you received the Pneumonia Vaccine: Yes ROS Obtained: Yes Systems reviewed as appropriate & no additional complaints except as documented Physical Exam General General appearance: alert Head Head exam: atraumatic Eye Eye exam: Present PERRL Respiratory Respiratory exam: Present normal lung sounds bilaterally Cardiovascular Cardiovascular exam: Present regular rate Abdominal Exam Abdominal exam: Present soft; Absent tenderness Extremities Exam Extremities exam: Present full ROM Neurological Exam Neurological exam: Present alert Skin Skin exam: Present warm and dry Medical Decision Making Medical Records Screening: Per USPSTF and CDC recommendations, given the prevalence of disease in our region, it is our hospital?s policy to screen for HIV and viral Hepatitis for all patients aged 18 and over and those with ongoing risk factors. Sukhi Inquiry Pt receiving controlled substance: No Vital Signs: 01/06/25 16:10 01/06/25 16:12 01/06/25 16:34 Temperature 98.0 F Temperature Source Oral Pulse Rate 91 H 74 Pulse Rate [Left Radial] 80 Respiratory Rate 19 Blood Pressure 158/94 H 131/78 Blood Pressure [Right Arm] 158/94 H Blood Pressure Mean [Right Arm] 115 02 Sat by Pulse Oximetry 95 95 97 Oxygen Delivery Method Room Air Room Air 01/06/25 17:00 01/06/25 17:31 Temperature Temperature Source Pulse Rate 71 70 Pulse Rate [Left Radial] Respiratory Rate Blood Pressure 129/73 126/81 Blood Pressure [Right Arm] Blood Pressure Mean [Right Arm] 02 Sat by Pulse Oximetry 96 95 Oxygen Delivery Method Room Air Room Air Lab Data Lab Results 01/06/25 16:30: Urine Color Yellow, Urine Appearance Clear, Urine pH 6.0, Ur Specific [place] 1.025, Urine Protein Negative, Urine Glucose (UA) Negative, Urine Ketones Trace, Urine Blood Negative, Urine Nitrate Negative, Urine Bilirubin Negative, Urine Urobilinogen 0.2, Ur Leukocyte Esterase Negative, Urine RBC None, Urine WBC 3-5, Ur Squamous Epith Cells 3-5, Urine Bacteria Trace 01/06/25 16:34: WBC 8.8, RBC 4.77, Hgb 16.0, Hct 44.8, MCV 93.9, MCH 33.5 H, M CHC 35.7 H, RDW 12.4, Plt Count 141 L, MPV 10.4, Neut % (Auto) 82.9 H, Lymph % (Auto) 8.3 L, [place] % (Auto) 6.0, Eos % (Auto) 1.4, Baso % (Auto) 0.7, Neut # (Auto) 7.3, Lymph # (Auto) 0.7, [place] # (Auto) 0.5, Eos # (Auto) 0.1, Baso # (Auto) 0.1, Sodium 134 L, Potassium 3.8, Chloride 100, Carbon Dioxide 22, Anion Gap 15.8 H, BUN 10, Creatinine 1.20, Estimated Creat Clear 63, Estimated GFR 59, Est GFR ( Amer) 71, Glucose 178 H, Calcium 9.6, Total Bilirubin 1.4 H, A ST 25 D, ALT 25, Alkaline Phosphatase 86, Total Protein 7.4, Albumin 4.9, Globulin 2.5, Albumin/Globulin Ratio 2.0 H 01/06/25 16:34 01/06/25 16:34 Orders (Tests/Meds): ORDERS Category Date Time Status CBC w/Auto Diff [Complete Blood Count Auto Diff] Stat Lab 01/06/25 16:34 Completed CMP [Comprehensive Metabolic Panel] Stat Lab 01/06/25 16:34 Completed Urinalysis and Microscopic Stat Lab 01/06/25 16:30 Completed Medical Decision Narrative: In summary, patient is a very pleasant 79 year old male PMHx CAD, hypertension, hyperlipidemia, diabetes, history of respiratory failure, history of chronic prostatitis presents to the ED with family for urinary retention. Patient was evaluated in the ED yesterday for right flank pain and urinary retention. I performed his workup yesterday with lab work and a CT scan, CT scan showed enlarged prostate, patient was offered a Andino catheter yesterday however declined. Today, he states he would like the Andino catheter. He states he has been able to urinate but only in very small amounts and feels that his bladder is full. Shared decision making used, we will perform new labs and urinalysis, bladder scan and place Andino. Patient is agreeable to plan of care at this time. Denies fever, chills, body aches, chest pain, shortness of breath, abdominal pain, dysuria, hematuria. Differential diagnosis include UTI, sepsis, pyelonephritis, renal calculi, hematuria, urinary retention, among others. CBC unremarkable for any leukocytosis, stable H&H. CMP unremarkable for any actionable abnormalities. Normal kidney function. Urinalysis unremarkable for any blood, nitrates, leuks. Bladder scan revealed 400 mL, Andino catheter placed, emptied before discharge at 500 mL. Upon reassessment, patient states he feels completely better. He was given a leg bag and a urinal. We discussed catheter care. Reminded him to keep his follow-up appointment with urology Wednesday at 10 AM. We discussed very strict return precautions to the ED and patient and family member verbalized understanding. He was hemodynamically stable and ambulatory without difficulty from the ED. Critical Care Critical Care Time Critical Care Time: No
--- OUTSIDE RECORDS SUMMARY | 2025-01-06 16:21 | XMS_ITS | Encounter Summary ---
Author Organization [facility] Address [address] [place] [address] Care Team Providers Care Vehicle Controls Engineer Name Role Phone Milan Romeo MD Primary Care Provider + Encounter Details Date Type Department Care Team (Late Contact Info) Description 07/07/2024 Results Follow-Up [facility] [address] [facility] [place] [address] Milan Romeo MD [address] [facility] [place] [address] Social History Tobacco Use Types [...] Description 01/16/2025 8:30 AM EST Office Visit [facility] [address] [facility] [place] [address] Milan Romeo MD [address] [place] [address] documented as of this encounter Visit Diagnoses Not on filedocumented in this encounter Care Teams Vehicle Controls Engineer Relationship Specialty Start Date End Date Milan Romeo MD [address] [place] [address] PCP - General Family Medicine 06/08/22 documented as of this encounter
--- OUTSIDE RECORDS SUMMARY | 2025-01-06 16:21 | XMS_ITS | Clinical Summary ---
[facility] Address [address] [place] [address] Care Team Providers Care Clinical Office Technician Name Role Phone Milan Romeo MD Primary [...] MG SL tabletIndication s:Coronary artery disease involving seneca coronary artery of seneca heart without angina pectoris PLACE 1 TAB [...] 24 hr tabletIndication s:Coronary artery disease involving seneca coronary artery of seneca heart without angina pectoris TAKE 1/2 TABLET EVERY DAY 45 tablet 3 5 Active terazosin (HYTRIN) 5 MG capsuleIndicatio ns:Benign prostatic hyperplasia with lower urinary tract symptoms, symptom details unspecified TAKE 1 CAPSULE EVERY NIGHT 90 capsule 3 5 Active simvastatin (ZOCOR) 40 MG tabletIndication s:Coronary artery disease involving seneca coronary artery of seneca heart without angina pectoris TAKE 1 TABLET [...] with bradycardia and associated chest pain with [facility] evaluation revealing acute myocardial infarction. [...] Description 01/16/2025 8:30 AM EST Office Visit [facility] [address] [facility] [place] [address] Milan Romeo MD [address] [place] [address] Health Maintenance Due Date Last [...] Procedure Name Priority Date/Time Associated Diagnosis Comments SCANNED - LABS 01/05/2025 SCANNED - LABS 01/05/2025 SCANNED - LABS 01/05/2025 SCANNED - IMAGING 01/05/2025 HEMOGLOBIN A1C Routine 07/06/2024 9:18 AM EDT Type 2 diabetes mellitus without complication, without long-term current use of insulin POC ALBUMIN/CREATININE RATIO Routine 07/06/2024 8:36 AM EDT Type 2 diabetes mellitus without complication, without long-term current use of insulin LIPID PANEL Routine 01/06/2024 9:45 AM EST Coronary artery disease involving seneca coronary artery of seneca heart without angina pectoris Type 2 diabetes mellitus without complication, without long-term current use of insulin Essential hypertension SCANNED - COLONOSCOPY 02/24/2019 from Last 3 Months or Most Recently Relevant to Health Maintenance Results * IMAGING SCANNED (01/05/2025) Anatomical Region Laterality Modality Radiographic Garima ging Milan Romeo MD IMG DIAGNOSTIC IMAGING O RDERABLES Final Result * LABS SCANNED (01/05/2025) Only the most recent of3 resultswithin the time period is included. Milan Romeo MD LAB BLOOD ORDERABLES Fin al Result * (ABNORMAL) Hemoglobin A1c (07/06/2024 9:18 AM EDT) Pathologist [facility] Hemoglobin A1C 7.00(H) 4.80 - 5.60 % [facility] Comment: Hemoglobin A1C Ranges: Increased Risk for Diabetes 5.7% to 6.4% Diabetes >= 6.5% Diabetic Goal < 7.0% Blood 07/06/2024 9:18 AM EDT 07/06/2024 Narrative [facility] ([facility]) - 07/07/2024 3:07 AM EDT Performed at: [address] [place] [address] [id number] General Foundry Worker: Marco Antonio Ruiz MD, Phone: [phone] Patient Fasting: Y Milan Romeo MD LAB BLOOD ORDERABLES Fin al Result [facility] ([facility]) [address] [place] [address], [place] [phone] [facility] [address] [place] [address], [place] [phone] * POC Albumin/Creatinine Ratio Urine (07/06/2024 8:36 [...] 01/06/2024 9:45 AM EST 01/06/2024 Narrative [facility] ([facility]) - 01/07/2024 5:09 AM EST Performed at: 01 - [address] [id number] General Foundry Worker: Tom Damian PhD, Phone: [phone] Patient Fasting: Y Milan Romeo MD LAB BLOOD ORDERABLES Fin al Result [facility] ([facility]) [address] [id number], [facility] [address] [id number], * SCANNED - COLONOSCOPY (02/24/2019) Marco Antonio Bhatti MD CHART REVIEW TABS Jo l Result from Last 3 Months or Most Recently Relevant to Health Maintenance Insurance [employer] Care Teams Clinical Office Technician Relationship Specialty Start Date End Date Milan Romeo MD [address] [place] [address] PCP - General Family Medicine 06/08/22
[2025-01-06 16:40] LABS: Hematocrit 44.8 % (42.0-52.0); Hemoglobin 16.0 g/dL (14.1-18.0); Immature Granulocytes % 0.7 %; Mean Corpuscular HGB Conc 35.7 g/dL (31.8-35.4); Mean Corpuscular Hemoglobin 33.5 pg (27.0-31.2); Mean Corpuscular Volume 93.9 fl (80-94); Nucleated Red Blood Cells % 0 %; Platelet Count 141 K/mm3 (142-424); Red Blood Count 4.77 M/mm3 (4.60-6.20); Red Cell Distribution Width-SD 42.7 fL; White Blood Count 8.8 K/mm3 (4.8-10.8)
[2025-01-06 16:42] LABS: Microscopic, Urine URINE MICROSCOPIC (MICROSCOPIC)
[2025-01-06 16:43] LABS: Bilirubin,Urine Negative (Negative); Color,Urine YELLOW (Yellow); Glucose,Urine (UA) Negative (Negative); Ketones,Urine TRACE (Negative); Leukocyte Esterase,Urine Negative (Negative); PH,Urine 6.0 (5.0-8.5); Protein,Urine Negative (Negative); Specific Gravity, Urine 1.025 (1.005-1.030); Urobilinogen,Urine 0.2 EU/dl (0.2)
[2025-01-06 16:50] LABS: Alanine Aminotransferase 25 U/L (12-78); Albumin Level 4.9 g/dl (3.5-5.0); Albumin/Globulin Ratio 2.0 (1.1-1.8); Alkaline Phosphatase 86 U/L (38-126); Anion Gap 15.8 mEq/L (5-15); Aspartate Amino Transferase 25 U/L (17-59); Bilirubin,Total 1.4 mg/dl (0.2-1.3); Blood Urea Nitrogen 10 mg/dl (9-20); Calcium 9.6 mg/dl (8.4-10.2); Carbon Dioxide 22 mmol/L (22.0-30.0); Chloride 100 mmol/L (98-107); Creatinine Clearance Estimated 63 mL/min (50-200); Creatinine,Serum 1.20 mg/dl (0.66-1.25); Estimated Glomerular Filt Rate 59 ml/min (>60); GFR (African American) 71 ML/MIN (>60); Globulin 2.5 g/dL (1.3-3.2); Glucose 178 mg/dl (74-100); Potassium 3.8 mmoL/L (3.5-5.1); Sodium 134 mmol/L (136-145); Total Protein,Serum 7.4 g/dl (6.3-8.2)
[2025-01-06 16:53] LABS: Bacteria,Urine Trace /lpf
--- NOTE | 2025-01-06 17:58 | PC.NURSE ---
500ml emptied from valencia bag
== END 2025-01-06 18:15 | disposition home or self-care (01) ==
PROVIDERS: Nurse Practitioner; Emergency Provider Student in an Organized Health Care Education/Training Program; PCP Family Medicine
DX: R33.9 Retention of urine, unspecified (principal)
CPT/HCPCS: 51702; 51798; 80053; 81001; 85025; 99283; 99285

== ENCOUNTER 2025-01-06 21:12 | Emergency (ER) | payer MEDICARE, SELFPAY ==
--- OUTSIDE RECORDS SUMMARY | 2025-01-06 21:22 | XMS_ITS | Clinical Summary ---
[facility] Address [address] [place] [address] Care Team Providers Care Outsole Compressor Name Role Phone Milan Romeo MD Primary [...] MG SL tabletIndication s:Coronary artery disease involving chitina coronary artery of chitina heart without angina pectoris PLACE 1 TAB [...] 24 hr tabletIndication s:Coronary artery disease involving chitina coronary artery of chitina heart without angina pectoris TAKE 1/2 TABLET EVERY DAY 45 tablet 3 5 Active terazosin (HYTRIN) 5 MG capsuleIndicatio ns:Benign prostatic hyperplasia with lower urinary tract symptoms, symptom details unspecified TAKE 1 CAPSULE EVERY NIGHT 90 capsule 3 5 Active simvastatin (ZOCOR) 40 MG tabletIndication s:Coronary artery disease involving chitina coronary artery of chitina heart without angina pectoris TAKE 1 TABLET [...] with bradycardia and associated chest pain with [facility] Emergency Room evaluation revealing acute myocardial [...] Description 01/16/2025 8:30 AM EST Office Visit [facility] 210 [facility] [place] [address] Milan Romeo MD [address] [place] [address] Health Maintenance Due Date Last [...] 9:45 AM EST Coronary artery disease involving chitina coronary artery of chitina heart without angina pectoris Type 2 diabetes [...] Hemoglobin A1c (07/06/2024 9:18 AM EDT) Pathologist [facility] Hemoglobin A1C 7.00(H) 4.80 - 5.60 % [facility] Comment: Hemoglobin A1C Ranges: Increased Risk for Diabetes 5.7% to 6.4% Diabetes >= 6.5% Diabetic Goal < 7.0% Blood 07/06/2024 9:18 AM EDT 07/06/2024 Narrative [facility] ([facility]) - 07/07/2024 3:07 AM EDT Performed at: [address] [place] [id number] Conservation Of Resources Commissioner: Marco Antonio Ruiz MD, Phone: [phone] Patient Fasting: Y Milan Romeo MD LAB BLOOD ORDERABLES Fin al Result [facility] ([facility]) [address] [place] [address], [place] [phone] [facility] [address] [place] [address], [place] [phone] * POC Albumin/Creatinine Ratio Urine (07/06/2024 8:36 [...] 5:09 AM EST Performed at: 01 - [address] [id number] Conservation Of Resources Commissioner: Tom Damian PhD, Phone: [phone] Patient Fasting: Y Milan Romeo MD LAB BLOOD ORDERABLES Fin al Result [facility] ([facility]) [address] [id number], [facility] [address] [id number], * SCANNED - COLONOSCOPY (02/24/2019) Marco Antonio Bhatti MD CHART REVIEW TABS Jo l Result from Last 3 Months or Most Recently Relevant to Health Maintenance Insurance [employer] Care Teams Outsole Compressor Relationship Specialty Start Date End Date Milan Romeo MD [address] [place] [address] PCP - General Family Medicine 06/08/22
--- OUTSIDE RECORDS SUMMARY | 2025-01-06 21:22 | XMS_ITS | Encounter Summary ---
Author Organization [facility] Address [address] [place] [address] Care Team Providers Care Monitor And Storage Bin Tender Name Role Phone Milan Romeo MD Primary Care Provider + Encounter Details Date Type Department Care Team (Late Contact Info) Description 07/07/2024 Results Follow-Up [facility] [address] [facility] [address] Milan Romeo MD [address] [facility] [place] [address] Social History Tobacco Use Types [...] Description 01/16/2025 8:30 AM EST Office Visit [facility] [address] [facility] [address] Milan Romeo MD [address] [place] [address] documented as of this encounter Visit Diagnoses Not on filedocumented in this encounter Care Teams Monitor And Storage Bin Tender Relationship Specialty Start Date End Date Milan Romeo MD [address] [place] [address] PCP - General Family Medicine 06/08/22 documented as of this encounter
--- NOTE | 2025-01-06 21:25 | ED_ITS ---
<Statement entered by Austin Gutierrez DO - 01/06/25 22:03> I was consulted by the MANJIT, and we discussed the complexity of problems being addressed. I approved the treatment and management plan for this patient's care in the emergency department, thus performing a substantive portion of the medical decision making. Austin Gutierrez DO I did independently evaluate this patient myself. This gentleman has presented to the emergency department 3 times now in the last 24 hours. Yesterday he was having symptoms of prostatitis and had a CT scan showing no abnormalities aside from a large prostate. Therefore he was started on treatment by different provider empirically for chronic prostatitis. Today he represented to the hospital earlier in the day complaining of urinary retention. He had several 100 mL of urine in his bladder and ultimately asked for a Andino catheter to be placed. We placed a Andino catheter and the catheter was inserted smoothly and the patient was ultimately able to clear his bladder and was discharged home. He states that after returning home he began experiencing some bleeding from the urethra. This prompted his return to the emergency department this evening. Nursing staff initially performed a postvoid residual and he did not have any urine in his bladder on bladder scan. Upon my evaluation of the patient he does have some venous blood present at the urethral meatus coming from around the catheter. We were able to clean this blood from around the penile urethra and blood did not rapidly accumulate. We flushed the catheter with a liter of saline and the urine cleared appropriately. This tells me that there is not ongoing active bleeding from the bladder itself and that this is likely bleeding from urethral or prostatic trauma from Nadino catheter insertion earlier in the day. Given that his urine is cleared appropriately and he appears to be relatively hemostatic at this time I do feel that he is stable for discharge home. He has a follow-up with Dr. Catherine of urology on Wednesday. Will have him follow-up at that time and return if he has any new or worsening symptoms Discharge Plan Disposition Patient Disposition: Home, Self-Care Prescriptions Prescriptions: No Action ascorbate calcium (vitamin C) 500 mg tablet 500 mg PO DAILY cyanocobalamin (vitamin B-12) 1,000 mcg capsule 1,000 mcg PO DAILY simvastatin 40 mg tablet 40 mg PO DAILY metformin 500 mg tablet 500 mg PO BID niacin 500 mg tablet 500 mg PO DAILY mecobalamin (vitamin B12) 5,000 mcg tablet,chewable 5,000 mcg PO DAILY nitroglycerin 0.3 mg tablet, sublingual 0.3 mg sublingual Q5M PRN Rx Instructions: do not exceed 3 doses per episode glipizide 5 mg tablet 5 mg PO BID sulfamethoxazole-trimethoprim [Bactrim DS] 800-160 mg tablet 1 tab PO Q8H 21 Days Qty: 63 0RF terazosin 5 MG capsule 5 mg PO DAILY metoprolol tartrate 25 MG tablet 25 mg PO DAILY aspirin 81 MG tablet,delayed release (DR/EC) 162 mg PO DAILY Referrals Follow up/Referrals: Milan Romeo MD [Primary Care Provider, Medical] - See instructions Activity Restrictions/Add. Instructions Additional Instructions/Restrictions: Today you were evaluated in the emergency department for bleeding around your catheter. Please increase your fluid intake, keep your follow-up appointment with urology Wednesday at 10 AM and return to the ED for any worsening of condition. Clinical Impressions Clinical Impression: Problem with urinary catheter Instructions Patient Instructions: DI for Urinary Tract Infection (UTI), DI for Urinary Tract Infection in Children, DI for Urinary Retention in Men Print Language Print Language: Spanish Discharge ED Provider: Austin Gutierrez General Adult HPI General Chief complaint: Urogenital-Male Stated complaint: cath is bleeding Time Seen by Provider: 01/06/25 21:24 History of Present Illness HPI narrative: Patient is a 79-year-old male PMHx CAD, hypertension, hyperlipidemia, diabetes, urinary retention in which we placed a Andino catheter earlier today during another ED visit. He presents to the ED tonight due to blood around the tip of his penis / catheter. He denies any pain. Related Data Home Medications ?Medication ?Instructions ?Recorded ?Confirmed metoprolol tartrate 25 mg tablet 25 mg PO DAILY blood pressure 02/16/19 07/20/22 terazosin 5 mg capsule 5 mg PO DAILY urination 04/0607/20/22 aspirin 81 mg tablet,delayed 162 mg PO DAILY CIRCULATI ON 03/01/21 07/20/22 release glipizide 5 mg tablet 5 mg PO BID 06/15/22 3 mecobalamin (vitamin B12) 5,000 5,000 mcg PO DAILY 03/0907/20/22 mcg chewable tablet metformin 500 mg tablet 500 mg PO BID 06/15/2207/20 niacin 500 mg tablet 500 mg PO DAILY 06/15/2207/07 nitroglycerin 0.3 mg sublingual 0.3 mg sublingual Q5M PRN 06/15/22 07/20/22 tablet simvastatin 40 mg tablet 40 mg PO DAILY 06/15/2207/07 ascorbate calcium (vitamin C) 500 500 mg PO DAILY 07/0707/20/22 mg tablet cyanocobalamin (vitamin B-12) 1,000 mcg PO DAILY 07/2007/20/22 1,000 mcg capsule Previous Rx's ?Medication ?Instructions ?Recorded sulfamethoxazole 800 1 tab PO Q8H 21 days #63 tab s 01/05/25 mg-trimethoprim 160 mg tablet (Bactrim DS) Allergies Allergy/AdvReac Type Severity Reaction Status Date / Time No Known Allergies Allergy Verified 01/05/25 13:51 PFSH [facility] Disclaimer: The information contained in this section may have been updated after the patient was seen, as this information can be updated by other users. Medical History (Updated 01/06/25 @ 21:40 by Laxmi Helton APRN) Prostate hypertrophy Tremor Hypertension Hyperlipidemia Type 2 diabetes mellitus CAD (coronary artery disease) Surgical History (Updated 06/15/22 @ 08:42 by Linda Lamas) History of cholecystectomy History of four vessel coronary artery bypass graft History of cataract surgery History of colonoscopy Family History (Updated 06/15/22 @ 08:22 by Linda Lamas) Other Coronary artery disease Stroke Social History (Updated 06/15/22 @ 08:22 by Linda Lamas) Smoking Status: Never smoker smoking status stop date: 1999 second hand exposure: No alcohol intake: never substance use type: denies use current occupational status: retired Travel in the last 8 weeks?: None household members: none housing: house current occupational exposures/hazards: No caffeine: Yes Have you lived/traveled outside US in past 30 days?: No Contact w/someone who lives/traveled outside US past 30 days?: No Exposure to someone with infectious disease in past 14 days?: No Do you have a fever (greater than 100.4 F or 38 C)?: No Have you tested positive for COVID-19?: No Exposed to someone with COVID-19 in past 14 days?: No Do you have a sore throat?: No Do you have a cough?: No Do you have any weakness?: No Do you have any diarrhea?: No Are you experiencing any unusual bleeding?: Yes Do you have any muscle aches/pain?: No Do you have any abdominal pain?: No Are you experiencing loss of taste or smell?: No Other Medical History Have you received the Flu Vaccine for this season: No Have you received the Pneumonia Vaccine: Yes ROS Obtained: Yes Systems reviewed as appropriate & no additional complaints except as documented Physical Exam General General appearance: alert Head Head exam: atraumatic Eye Eye exam: Present PERRL Neck Neck exam: Present full ROM Respiratory Respiratory exam: Present normal lung sounds bilaterally Cardiovascular Cardiovascular exam: Present regular rate Abdominal Exam Abdominal exam: Present soft; Absent tenderness Back Exam Back exam: Present full ROM Neurological Exam Neurological exam: Present alert and oriented X3 Psychiatric Psychiatric exam: Present normal affect Skin Skin exam: Present warm and dry Medical Decision Making Medical Records Screening: Per USPSTF and CDC recommendations, given the prevalence of disease in our region, it is our hospital?s policy to screen for HIV and viral Hepatitis for all patients aged 18 and over and those with ongoing risk factors. Sukhi Inquiry Pt receiving controlled substance: No Vital Signs: 01/06/25 21:38 01/06/25 21:43 Temperature 7 F L 98.7 F Temperature Source Oral Oral Pulse Rate 81 Pulse Rate [Right] 93 H Respiratory Rate 18 18 Blood Pressure 166/88 H Blood Pressure [Right Arm] 185/97 H Blood Pressure Mean [Right Arm] 126 02 Sat by Pulse Oximetry 99 Oxygen Delivery Method Room Air Room Air Medical Decision Narrative: In summary, patient is a 79-year-old male PMHx CAD, hypertension, hyperlipidemia, diabetes, urinary retention in which we placed a Andino catheter earlier today during another ED visit. He presents to the ED tonight due to blood around the tip of his penis / catheter. He denies any pain. He has 75 mL in his Andino bag. He states he has not emptied it since he left the ED earlier. I performed a bladder scan on the patient at bedside, 5 mL noted in the bladder. Andino was irrigated in the room, attending present. Irrigation cleared. Patient denies any pain. After irrigation, bleeding appears to have stopped. Patient remains hemodynamically stable. Will discharge home in the care of sister who is present in ED with strict return precautions. Critical Care Critical Care Time Critical Care Time: No
[2025-01-06 21:38] VITALS: BP 185/97; PULSE 93; RESP 18; TEMP -13.8; TEMP 7; O2SAT 99; BMI 26.4
--- NOTE | 2025-01-06 21:41 | PC.NURSE ---
Flush catheter with 500mL NS. 490mL returned in urinal. PT had no pain with flushing.
[2025-01-06 21:43] VITALS: BP 166/88; PULSE 81; RESP 18; TEMP 37.1; O2SAT 95
== END 2025-01-06 21:46 | disposition home or self-care (01) ==
PROVIDERS: Emergency Provider Student in an Organized Health Care Education/Training Program; PCP Family Medicine
DX: T83.89XA Other specified complication of genitourinary prosthetic devices, implants and grafts, initial encounter (principal)
CPT/HCPCS: 99282

== ENCOUNTER 2025-01-08 10:44 | Outpatient (CLI) | payer MEDICARE, SELFPAY | END 2025-01-08 23:59 | disposition home or self-care (01) | LOC: LAB.DROPOF 01-09 09:02 | PROVIDERS: PCP Family Medicine; Visit Provider Urology | DX: R33.8 Other retention of urine (principal); Z97.8 Presence of other specified devices | CPT/HCPCS: 87086 ==

== ENCOUNTER 2025-01-16 11:11 | Emergency (ER) | payer MEDICARE, SELFPAY ==
--- OUTSIDE RECORDS SUMMARY | 2025-01-16 11:18 | XMS_ITS | Clinical Summary ---
[facility] Address [address] [place] [address] Care Team Providers Care Specialist Employee Labor Relations Name Role Phone Milan Romeo MD Primary [...] MG SL tabletIndication s:Coronary artery disease involving [place]ot[place] coronary artery of [place] heart without angina pectoris PLACE 1 TAB [...] 24 hr tabletIndication s:Coronary artery disease involving [place] coronary artery of [place] heart without angina pectoris TAKE 1/2 TABLET EVERY DAY 45 tablet 3 5 Active terazosin (HYTRIN) 5 MG capsuleIndicatio ns:Benign prostatic hyperplasia with lower urinary tract symptoms, symptom details unspecified TAKE 1 CAPSULE EVERY NIGHT 90 capsule 3 5 Active simvastatin (ZOCOR) 40 MG tabletIndication s:Coronary artery disease involving [place] coronary artery of [place] heart without angina pectoris TAKE 1 TABLET [...] 61) stroke Father A (Age 73) heart att ack Mother A (Age 64) stroke Other Social [...] Care Team (Late st Contact Info) Description 01/19/2025 12:00 PM EST Office Visit [facility] [address] [facility] [place] [address] Milan Romeo MD [address] [place] [address] Health Maintenance Due Date Last [...] Date/Time Associated Diagnosis Comments SCANNED - LABS 01/08/2025 SCANNED - LABS 01/06/2025 SCANNED - LABS 01/06/2025 SCANNED - LABS 01/05/2025 SCANNED - LABS [...] 9:45 AM EST Coronary artery disease involving [place] coronary artery of tak[place] heart without angina pectoris Type 2 diabetes mellitus without complication, without long-term current use of insulin Essential hypertension SCANNED - COLONOSCOPY 02/24/2019 from Last 3 Months or Most Recently Relevant to Health Maintenance Results * LABS SCANNED (01/08/2025) Only the most recent of6 resultswithin the time period is included. us Milan Romeo MD LAB BLOOD ORDERABLES Fin al Result * IMAGING SCANNED (01/05/2025) Anatomical Region Laterality Modality Radiographic Garima ging us Milan Romeo MD IMG DIAGNOSTIC IMAGING O RDERABLES Final Result * (ABNORMAL) Hemoglobin A1c (07/06/2024 9:18 AM EDT) Hemoglobin A1C 7.00(H) 4.80 - 5.60 % [facility] Comment: Hemoglobin A1C Ranges: Increased Risk for Diabetes 5.7% to 6.4% Diabetes >= 6.5% Diabetic Goal < 7.0% Blood 07/06/2024 9:18 AM EDT 07/06/2024 Narrative [facility] ([facility]) - 07/07/2024 3:07 AM EDT Performed at: [address] [place] [id number] Refrigeration Houseman: Marco Antonio Ruiz MD, Phone: [phone] Patient Fasting: Y us Milan Romeo MD LAB BLOOD ORDERABLES Fin al Result [facility]) [address] [place] [address], [place] [phone] [facility] [address] [place] [address], [place] [phone] * POC Albumin/Creatinine Ratio Urine (07/06/2024 8:36 [...] 5:09 AM EST Performed at: 01 - [address] [id number] Refrigeration Houseman: Tom Damian PhD, Phone: [phone] Patient Fasting: Y Milan Romeo MD LAB BLOOD ORDERABLES Fin al Result [facility] ([facility]) [address] [place] [address], [facility] [address] [place] [address], * SCANNED - COLONOSCOPY (02/24/2019) Marco Antonio Bhatti MD CHART REVIEW TABS Jo l Result from Last 3 Months or Most Recently Relevant to Health Maintenance Insurance [employer] Care Teams Specialist Employee Labor Relations Relationship Specialty Start Date End Date Milan Romeo MD [address] [place] [address] PCP - General Family Medicine 06/08/22
--- OUTSIDE RECORDS SUMMARY | 2025-01-16 11:18 | XMS_ITS | Encounter Summary ---
Author Organization [facility] Address [address] [place] [address] Care Team Providers Care Assistant Manager Airside Operations Name Role Phone Milan Romeo MD Primary Care Provider + Encounter Details Date Type Department Care Team (Late Contact Info) Description 07/07/2024 Results Follow-Up [facility] MEDICINE 210 [facility] [address] Milan Romeo MD 210 [facility] [place] [address] Social History Tobacco Use Types [...] Department Care Team (Late Contact Info) Description 01/19/2025 12:00 PM EST Office Visit [facility] MEDIC[facility] [address] [facility] [address] Milan Romeo MD [address] [place] [address] documented as of this encounter Visit Diagnoses Not on filedocumented in this encounter Care Teams Assistant Manager Airside Operations Relationship Specialty Start Date End Date Milan Romeo MD [address] [place] [address] PCP - General Family Medicine 06/08/22 documented as of this encounter
--- NOTE | 2025-01-16 11:21 | ED_ITS ---
<Statement entered by Hansel Mario MD - 01/16/25 14:44> I was consulted by the MANJIT, and we discussed the complexity of problems being addressed. I approved the treatment and management plan for this patient's care in the emergency department, thus performing a substantial portion of the medical decision making. Hansel Mario MD Discharge Plan Disposition Patient Disposition: Home, Self-Care Condition: Good Prescriptions Prescriptions: No Action ascorbate calcium (vitamin C) 500 mg tablet 500 mg PO DAILY cyanocobalamin (vitamin B-12) 1,000 mcg capsule 1,000 mcg PO DAILY tamsulosin [Flomax] 0.4 mg capsule 0.4 mg PO DAILY Qty: 90 1RF Rx Instructions: Take 1/2-hour after same meal each day. sulfamethoxazole-trimethoprim [Bactrim DS] 800-160 mg tablet 1 tab PO BID 5 Days Qty: 10 0RF nystatin-triamcinolone 100,000-0.1 unit/g-% cream 1 applic topical BID Qty: 30 0RF finasteride [Proscar] 5 mg tablet 5 mg PO DAILY Qty: 90 1RF simvastatin 40 mg tablet 40 mg PO DAILY metformin 500 mg tablet 500 mg PO BID mecobalamin (vitamin B12) 5,000 mcg tablet,chewable 5,000 mcg PO DAILY nitroglycerin 0.3 mg tablet, sublingual 0.3 mg sublingual Q5M PRN Rx Instructions: do not exceed 3 doses per episode metoprolol tartrate 25 MG tablet 25 mg PO DAILY aspirin 81 MG tablet,delayed release (DR/EC) 162 mg PO DAILY Referrals Follow up/Referrals: Milan Romeo MD [Primary Care Provider, Medical] - See instructions Rajesh Catherine MD [Staff Physician, Urology] - See instructions Activity Restrictions/Add. Instructions Additional Instructions/Restrictions: Please return to the emergency department with any worsening signs or symptoms. Please continue to take all your medication as prescribed. Please continue to utilize your Andino catheter as instructed by urologist. Please keep follow-up with urologist. Clinical Impressions Clinical Impression: Problem with urinary catheter, Encounter for assessment of Andino catheter Instructions Patient Instructions: How to Care for Your Male Andino Catheter Print Language Print Language: Bengali Discharge ED Provider: Hansel Mario General Adult [facility] General Chief complaint: Urogenital-Male Stated complaint: no urine output in catheter Time Seen by Provider: 01/16/25 11:13 Mode of Arrival: Ambulatory Source of Information: Patient Limitations: No Limitations History of Present Illness HPI narrative: 79-year-old male presents emergency department with concern for urinary catheter malfunction/urinary retention/decreased output from his urinary catheter. Patient states that this morning he had little to no output of his urinary catheter bag this prompted emergency department visit. Patient had recent urology office visit yesterday, where he had his catheter changed, patient has ongoing BPH/urinary outflow obstruction in the setting of neurogenic bladder/ongoing prostatitis on p.o. Bactrim, per review of urologist clinic note yesterday, patient's urinary catheter was replaced with a 16 [place] coud? tip Andino catheter and was draining clear urine at that time, patient also started on Flomax and Proscar, patient has no abdominal pain, no fever chills chest pain shortness of breath no nausea vomiting constipation diarrhea, no real hematuria that he has seen, patient also of note tells me that he did not start having more output as soon as he arrived at the emergency department. Patient denies any other acute signs or symptoms, other past medical history consistent with parkinsonian-like tremor, CAD, hypertension, hyperlipidemia, T2DM. Initial triage vitals are unremarkable. Please note that above description of symptoms, in this electronic medical record under categorization of recalled from ER triage doctor by RN are refl ective of an initial nursing assessment, however, is not reflective of my full history and physical exam that was personally taken and clarified. Consequentially, this preceding description of symptoms, which may include the patient's categorized chief complaint in the EMR, do not reflect my personal clinical impression, and the ultimate description of history of present illness and patient stated complaints should be deferred to this section of the note. Unless stated otherwise or congruent with this section of the note, additional signs, symptoms, or incongruence should be interpreted as inaccurate with my clinical impression. Onset (ago): hour(s) Related Data Home Medications ?Medication ?Instructions ?Recorded ?Confirmed metoprolol tartrate 25 mg tablet 25 mg PO DAILY blood pressure 02/16/19 01/15/25 aspirin 81 mg tablet,delayed 162 mg PO DAILY CIRCULATI ON 03/01/21 01/15/25 release mecobalamin (vitamin B12) 5,000 5,000 mcg PO DAILY 03/0901/15/25 mcg chewable tablet metformin 500 mg tablet 500 mg PO BID 06/15/2201/15 nitroglycerin 0.3 mg sublingual 0.3 mg sublingual Q5M PRN 06/15/22 01/15/25 tablet simvastatin 40 mg tablet 40 mg PO DAILY 06/15/2203/11 ascorbate calcium (vitamin C) 500 500 mg PO DAILY 07/0701/15/25 mg tablet cyanocobalamin (vitamin B-12) 1,000 mcg PO DAILY 07/2001/15/25 1,000 mcg capsule Previous Rx's ?Medication ?Instructions ?Recorded finasteride 5 mg tablet (Proscar) 5 mg PO DAILY #90 ta bs 01/15/25 nystatin-triamcinolone 100,000 1 applic topical BID #3 0 grams 01/15/25 unit/g-0.1 % topical cream sulfamethoxazole 800 1 tab PO BID 5 days #10 tabs 01/15/25 mg-trimethoprim 160 mg tablet (Bactrim DS) tamsulosin 0.4 mg capsule (Flomax) 0.4 mg PO DAILY #90 caps 01/15/25 Allergies Allergy/AdvReac Type Severity Reaction Status Date / Time No Known Allergies Allergy Verified 01/15/25 10:22 [facility] Disclaimer: The information contained in this section may have been updated after the patient was seen, as this information can be updated by other users. Medical History Prostate hypertrophy Tremor Mild tremor. Slowly progressive, initially involving the left arm and currently both arms. Some parkinsonian features on exam, (increased tone, decreased arm swing). There was no strong evidence of other parkinsonian features. Differential diagnosis: Essential tremor, tremor plus,(essential tremor and atypical parkinsonism), Parkinson disease, Parkinson plus seems less likely at this time. There was no significant impairment of handwriting, fine motor skills, spiral test was minimally impaired. Results of most recent laboratory work-up by PCP were requested, (CMP CBC, B12, folate, TSH, A1c hemoglobin). Hypertension Hyperlipidemia Type 2 diabetes mellitus Most recent A1c hemoglobin 8.3 CAD (coronary artery disease) Surgical History History of cholecystectomy History of four vessel coronary artery bypass graft History of cataract surgery History of colonoscopy Family History Other Coronary artery disease Stroke Social History Smoking Status: Never smoker smoking status stop date: 1999 second hand exposure: No alcohol intake: never substance use type: denies use current occupational status: retired Travel in the last 8 weeks?: None household members: none housing: house current occupational exposures/hazards: No caffeine: Yes Have you lived/traveled outside [place] in past 30 days?: No Contact w/someone who lives/traveled outside [place] past 30 days?: No Exposure to someone with infectious disease in past 14 days?: No Do you have a fever (greater than 100.4 F or 38 C)?: No Have you tested positive for COVID-19?: No Exposed to someone with COVID-19 in past 14 days?: No Do you have a sore throat?: No Do you have a cough?: No Do you have any weakness?: No Do you have any diarrhea?: No Are you experiencing any unusual bleeding?: No Do you have any muscle aches/pain?: No Do you have any abdominal pain?: No Are you experiencing loss of taste or smell?: No Other Medical History Have you received the Flu Vaccine for this season: No Have you received the Pneumonia Vaccine: Yes ROS Obtained: Yes All systems reviewed & no additional complaints except as documented Physical Exam General General appearance: alert and in no apparent distress Head Head exam: atraumatic and normocephalic Eye Eye exam: Present PERRL and EOMI ENT ENT exam: Present mucous membranes moist Neck Neck exam: Present normal inspection Chest Chest inspection: Present normal inspection and symmetric chest wall rise Respiratory Respiratory exam: Present normal lung sounds bilaterally; Absent respiratory distress Cardiovascular Cardiovascular exam: Present regular rate and normal rhythm Abdominal Exam Abdominal exam: Present soft; Absent distention, tenderness, guarding, rebound or rigidity Extremities Exam Extremities exam: Present normal inspection Neurological Exam Neurological exam: Present alert and oriented X3 Psychiatric Psychiatric exam: Present normal affect Skin Skin exam: Present warm and dry Medical Decision Making Medical Records Medical records reviewed: Yes I reviewed the patient's medical records. Screening: Per USPSTF and CDC recommendations, given the prevalence of disease in our region, it is our hospital?s policy to screen for HIV and viral Hepatitis for all patients aged 18 and over and those with ongoing risk factors. Sukhi Inquiry Pt receiving controlled substance: No Sukhi was queried for this patient: No Vital Signs: 01/16/25 11:23 01/16/25 11:26 Temperature 97.7 F Temperature Source Oral Pulse Rate 80 Pulse Rate [Right] 84 Respiratory Rate 16 18 Blood Pressure 132/79 Blood Pressure [Right Arm] 132/78 Blood Pressure Mean [Right Arm] 96 Blood Pressure Source Automatic Cuff Blood Pressure Source [Right Arm] Automatic Cuff Blood Pressure Position Sitting Blood Pressure Position [Right Arm] Sitting 02 Sat by Pulse Oximetry 96 97 Oxygen Delivery Method Room Air Medical Decision Narrative: 79-year-old male presents emergency department with receptive from urinary catheter, differential diagnosis include but not limited to, catheter malfunction, catheter malplacement, acute UTI, urinary outflow obstruction, BPH, among others. I discussed this patient's case with the attending physician Dr. Mario. Will BladderScan the patient and flush the patient's catheter. Bladder scan yielded 0 cc in the urinary bladder per nursing staff, urinary catheter was also flushed, patient having good drainage and output, no pain, no clinical signs and symptoms of obstruction, no distention, no hematuria, patient is already being treated for prostatitis with Bactrim and follows with urologist. Also of note, per nursing staff patient did have some kinking , in the tube, due to the patient's location of tubing with tape attachment, will have the patient tape catheter to avoid malfunction of the tubing. I advised him to keep appointments/follow-ups. Continue to take all medication as prescribed. Patient voiced understanding and agreement with the current treatment plan/discharge plan. Critical Care Critical Care Time Critical Care Time: No
[2025-01-16 11:23] VITALS: BP 132/78; PULSE 84; RESP 16; TEMP 36.5; O2SAT 96; BMI 25.6
[2025-01-16 11:26] VITALS: BP 132/79; PULSE 80; RESP 18; O2SAT 97
--- NOTE | 2025-01-16 12:03 | PC.NURSE ---
bladder scanned, nothing in bladder. flushed valencia with 40ml good flush and return
[2025-01-16 12:21] VITALS: BP 142/74; PULSE 74; RESP 15; TEMP 36.7; O2SAT 99
== END 2025-01-16 12:20 | disposition home or self-care (01) ==
PROVIDERS: Emergency Provider Emergency Medicine; PCP Family Medicine
DX: T83.091A Other mechanical complication of indwelling urethral catheter, initial encounter (principal)
CPT/HCPCS: 51798; 99283

== ENCOUNTER 2025-02-02 07:47 | Day surgery (SDC) | payer MEDICARE, SELFPAY ==
[2025-01-31 15:32] VITALS: BMI 25.4
[2025-02-02 07:59] VITALS: BP 162/78; PULSE 71; RESP 16; TEMP 36.1; O2SAT 96
[2025-02-02 08:10] LABS: POC Glucose,Bedside 118 gm/dL (70-110)
--- NOTE | 2025-02-02 08:33 | [facility].PROCNOTE ---
[facility] Procedure Note Date: 02/02/25 Time: 08:33 Procedure Note:: Chart review: Patient comes in with an indwelling Andino catheter. He has failed his voiding trials. He has peripheral neuropathy and I suspect a great reason for the retention is a neurogenic bladder. He did not undergo cystoscopy as he probably also has prostatic obstruction. He has been on Flomax and Proscar and uses nystatin when he needs under the prepuce for balanitis. I am going to try to teach the patient self intermittent catheterization today but he has a tremor and that makes that difficult. He does not have anyone at home that can help him with intermittent catheterization. His CT scan with infusion 01/09 was urologically negative. Pre-op diagnosis: Urinary retention Postop diagnosis: Urinary retention Operative note: The patient was prepped and draped in the usual fashion. His Andino catheter is removed. Culture and sensitivity has been set up. The anterior urethra is unremarkable. From the level of the verumontanum, however, the patient has grade 3-4 prostate obstruction from along 3-1/2 cm posterior urethra. The bladder is finely trabeculated throughout. There is 1 small pocket on the left side with a wide neck. He has no evidence of bladder stone tumor hemorrhage or infection otherwise. The patient does seem to have filling as the bladder is distended with normal saline. This is a favorable sign and a finding against a neurogenic bladder. Prostate surgery might be helpful to get the patient back to voiding. Even though the patient has a left hand tremor I did teach him how to do self clean intermittent catheterization. He will do self cath at home every 6 hours. I will see him next week and follow-up and will decide on consultation for prostate surgery considerations.
[2025-02-02] MEDS: 0.9 % SODIUM CHLORIDE 500 ML 25 ML IV (08:41)
[2025-02-02] MEDS: LIDOCAINE 2% UROJET 10ML 10 ML (08:41)
[2025-02-02 08:52] VITALS: BP 127/70; PULSE 69; RESP 16; TEMP 36.9; O2SAT 94
[2025-02-02 13:37] LABS: Microscopic,Cath URINE MICROSCOPIC (MICROSCOPIC)
[2025-02-02 15:16] LABS: Appearance,Urine/Cath CLEAR (Clear); Bilirubin,Cath Negative (Negative); Blood, Urine/Cath Negative (Negative); Color,Urine/Cath YELLOW (Yellow); Glucose,Urine/Cath (UA) Negative (Negative); Ketones,Urine/Cath Negative (Negative); Leukocyte Esterase,Cath Negative (Negative); Nitrate,Cath Negative (Negative); PH,Urine/Cath 6.0 (5.0-8.5); Protein,Urine/Cath Negative (Negative); Specific Gravity, Urine/Cath <= 1.005 (1.005-1.030); Urobilinogen,Cath 0.2 EU/dl (0.2)
== END 2025-02-02 09:05 | disposition home or self-care (01) ==
PROVIDERS: PCP Family Medicine; Visit Provider Urology
PROC: 0TJB8ZZ Inspection of Bladder, Via Natural or Artificial Opening Endoscopic (ICD-10-PCS; CPT 52000; principal; 2025-02-02 08:45)
DX: Z46.6 Encounter for fitting and adjustment of urinary device (principal); N40.1 Benign prostatic hyperplasia with lower urinary tract symptoms; R33.8 Other retention of urine; R25.1 Tremor, unspecified
CPT/HCPCS: 52000; 81001; 82962; J7040